=== PATIENT | male | born 2005 | race Caucasian/White ===

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

== ENCOUNTER 2023-08-26 14:30 | Outpatient (RCR) | payer BC, SELFPAY | END 2023-09-10 09:58 | disposition home or self-care (01) | PROVIDERS: Visit Provider Family Medicine | DX: M25.552 Pain in left hip (principal); M25.532 Pain in left wrist; Z51.89 Encounter for other specified aftercare; M62.81 Muscle weakness (generalized) | CPT/HCPCS: 97110; 97140; 97161 ==

== ENCOUNTER 2024-04-29 15:16 | Outpatient (CLI) | payer BC, SELFPAY ==
[2024-04-29 23:25] LABS: Chlamydia DNA Amplified* NOT DETECTED (No Detected); GC DNA Amplified* NOT DETECTED (No Detected)
== END 2024-04-29 15:17 | disposition home or self-care (01) ==
LOC: NFLDUCREF 15:16
PROVIDERS: Visit Provider Nurse Practitioner Family
DX: R30.0 Dysuria (principal)
CPT/HCPCS: 87086; 87491; 87591

== ENCOUNTER 2024-06-05 16:18 | Emergency (ER) | payer BC, SELFPAY ==
--- OUTSIDE RECORDS SUMMARY | 2024-06-05 16:20 | XMS_ITS | Clinical Summary ---
Author Organization [facility] Address [address] [place] [address] Care Team Providers Care Co Founder And Ceo Name Role Phone Staff, Other Clinical Primary Care Provider Unav ailable Allergies No known active allergies Medications methylphenidate 27 mg extended-release tablet Take 27 mg by mouth. 04/06/2024 Active Active Problems No known active problems Encounters Date Type Department Care Team Description 05/10/[address] [phone] Luan Atkinson PA Results 05/05/2024 9:35 AM ELECTRIC DETECTOR OPERATOR Office Visit [address] [phone] Luan Atkinson PA Urinary Problem (discomfort when urinating x 4 wks - had std testing and urinalysis - neg ) 05/05/2024 Travel from Last 3 Months Social History Tobacco Use Types Packs/Day Years Used Date Smoking Tobacco: Never Smokeless Tobacco: Never Tobacco Cessation:Counseling Given: Yes Alcohol Use Standard Drinks/Week Comments Yes 0 (1 standard drink = 0.6 oz pur e alcohol) occasionally Social Connections Answer Date Recorded Do you often feel lonely or isolated from those around you? 0 08/29/2023 Financial Resource Strain Answer Date R ecorded Difficulty of Paying Living Expenses 3 08/29/2023 Difficulty of Paying Living Expenses Not on file 08/29/2023 Food Insecurity Answer Date Recorded Do you worry your food will run out before you are able to buy more? 1 08/29/2023 Transportation Needs Answer Date Record ed Does lack of transportation keep you from medica l appointments? 1 08/29/2023 Does lack of transportation keep you from work, meetings or getting things that you need? 1 08/29/2023 Housing Stability Answer Date Recorded What is your housing situation today? 1 08/29/2023 Utilities Answer Date Recorded Do you have trouble paying f or utilities (for example, heat, electricity, water, phone)? 1 08/29/2023 Sex and Gender Information Value Date Recorded Sex Assigned at Not on file Legal Sex Male 9:51 AM CDT Gender Identity Not on file Sexual Orientation Not on file Obstetrics History Last Filed Vital Signs Vital Sign Reading Time Taken Comments Blood Pressure 120/62 05/05/2024 9:44 AM ELECTRIC DETECTOR OPERATOR Pulse 68 05/05/2024 9:44 AM ELECTRIC DETECTOR OPERATOR Temperature 36.4 C (97.6 F) 05/05/2024 9:44 AM ELECTRIC DETECTOR OPERATOR Respiratory Rate - - Oxygen Saturation 98% 08/29/2023 2:40 PM CDT Inhaled Oxygen Concentration - - Weight 89 kg (196 lb 4.8 oz) 05/05/2024 9:44 AM ELECTRIC DETECTOR OPERATOR Height 185.1 cm (6' 0.87) 08/07/2023 4:12 PM CD T Body Mass Index - - Plan of Treatment Health Maintenance Due Date Last Done Comments Tdap 2014 Depression screening for age 12+ 2015 HPV series for age 9-26 (1 - Male 3-dose series) 2018 Tetanus booster 2023 ([place]) Influenza for age 9-49 11/30/2023 COVID-19 vaccine series ( season) 2023 07/22/2020 BMI (ht and wt on same day) for age 18+ 08/06/2024 08/07/2023 HIV for age 15-65 Completed 05/05/2024 Hepatitis C screening for ag e 18-79 Completed 05/05/2024 Meningococcal series for age 11-21 Aged Out No longer eligible based on patient's age to complete this topic Pneumococcal series for age 6-49 Aged Out No longer eligible based on patient's age to complete this topic Procedures Procedure Name Priority Date/Time Associated Diagnosis Comments MYCOPLASMA GENITALIUM, MARGOT, URINE ([facility]) Routine 05/05/2024 10:58 AM ELECTRIC DETECTOR OPERATOR Dysuria Urethritis TRICHOMONAS AMPLIFIED PROBE Routine 05/05/2024 10:58 AM ELECTRIC DETECTOR OPERATOR Dysuria UA W/ SEDIMENT EXAM REFLEXED PER CRITERIA Routine 05/05/2024 10:58 AM ELECTRIC DETECTOR OPERATOR Dysuria GC CHLAMYDIA TRACH PROBE Routine 05/05/2024 10:58 AM ELECTRIC DETECTOR OPERATOR Dysuria ANTI HCV Routine 05/05/2024 10:45 AM ELECTRIC DETECTOR OPERATOR Dysuria ANTI HIV 1/2 Routine 05/05/2024 10:45 AM ELECTRIC DETECTOR OPERATOR Dysuria TREPONEMA PALLIDUM Routine 05/05/2024 10 :43 AM ELECTRIC DETECTOR OPERATOR Dysuria from Last 3 Months Results * MYCOPLASMA GENITALIUM, MARGOT, [facility] (05/05/2024 10:58 AM ELECTRIC DETECTOR OPERATOR) Pathologist [facility] MYCO GENITALIUM UR MARGOT Negative Negative 05/08/2024 10:08 AM ELECTRIC DETECTOR OPERATOR [facility]) Urine URINE SPECIMEN / Unknown Non-Blood / Unknown 05/05/2024 10:58 AM ELECTRIC DETECTOR OPERATOR 05/05/2024 10:58 AM ELECTRIC DETECTOR OPERATOR Narrative [facility] - 05/08/2024 10:08 AM ELECTRIC DETECTOR OPERATOR Performed at: - [facility] [address] [id number] Linux Server Engineer: Allen Molina MD, Phone: [phone] us Luan GARZON URINE Shanika l Result [facility] ([facility]) [address] [place] [address], * TRICHOMONAS AMPLIFIED PROBE (05/05/2024 10:58 AM ELECTRIC DETECTOR OPERATOR) Pathologist [facility] TRICHOMONAS AMPLIFIED PROBE Negative 05/07/2024 1:31 PM ELECTRIC DETECTOR OPERATOR [facility] Other URINE SPECIMEN / Unknown Non-Blood / Unknown 05/05/2024 10:58 AM ELECTRIC DETECTOR OPERATOR 05/05/2024 10:58 AM ELECTRIC DETECTOR OPERATOR Luan GARZON MICROBIOLOGY Shanika l Result Performing Organization Address [facility]/ZIP Co de Phone Number [facility] [address] [place] [address], [place] * GC CHLAMYDIA [[id number]] - urine (05/05/2024 10:58 AM ELECTRIC DETECTOR OPERATOR) CHLAMYDIA PROBE Negative 12:20 PM ELECTRIC DETECTOR OPERATOR [facility] N GONORRHOEAE PROBE Negative 05/06/2024 12:20 PM ELECTRIC DETECTOR OPERATOR [facility] Other URINE SPECIMEN / Unknown Non-Blood / Unknown 05/05/2024 10:58 AM ELECTRIC DETECTOR OPERATOR 05/05/2024 10:58 AM ELECTRIC DETECTOR OPERATOR Luan GARZON MICROBIOLOGY Shanika l Result Performing Organization Address [facility] de Phone Number [facility] [address] [place] [address], [place] * UA W/ SEDIMENT EXAM REFLEXED PER CRITERIA [15046.2] (05/05/2024 10:58 AM ELECTRIC DETECTOR OPERATOR) COLOR Yellow Yellow Color 05/05/2024 11:33 AM ELECTRIC DETECTOR OPERATOR [facility] CLARITY Clear Clear Clarity 05/05/2024 11:33 AM ELECTRIC DETECTOR OPERATOR [facility] SPECIFIC GRAVITY,URINE 1.025 1.010, 1.015, 1.020, 1.025 05/05/2024 11:33 AM [facility] PH,URINE 6.0 6.0, 7.0, 8.0, 5.5, 6.5, 7.5, 8.5 05/05/2024 11:33 AM [facility] UROBILINOGEN, QUALITATIVE Normal Normal EU/dl 05/05/2024 11:33 AM [facility] PROTEIN, URINE Negative Negative mg/dL 05/05/2024 11:33 AM [facility] GLUCOSE, URINE Negative Negative mg/dL 05/05/2024 11:33 AM [facility] KETONES,URINE Negative Negative mg/dL 05/05/2024 11:33 AM [facility] BILIRUBIN,URI NE Negative Negative 05/05/2024 11:33 AM [facility] OCCULT BLOOD,URINE Negative Negative 05/05/2024 11:33 AM [facility] NITRITE Negative Negative 05/05/2024 11:33 AM [facility] LEUKOCYTE ESTERASE Negative Negative 05/05/2024 11:33 AM [facility] Urine URINE SPECIMEN / Unknown Non-Blood / Unknown 05/05/2024 10:58 AM ELECTRIC DETECTOR OPERATOR 05/05/2024 10:58 AM ELECTRIC DETECTOR OPERATOR Result [facility] Luan Atkinson PA URINE Shanika l Result [facility] [address] [place] [address] * ANTI HCV [68421.2] (05/05/2024 10:45 AM ELECTRIC DETECTOR OPERATOR) HEPATITIS C ANTIBODY NON-REACTI VE NON-REACT ROS [facility] Comment: HCV antibody was non-reactive. There is no laboratory evidence of HCV infection. In most cases, no further action is required. However, if recent HCV exposure is suspected, a test for HCV RNA (test code 24063) is suggested. For additional information please refer to http://education.[employer]/faq/YSN65a5 (This link is being provided for informational/ educational purposes only.) Blood BLOOD SPECIMEN / Unknown 05/05/2024 10:45 AM ELECTRIC DETECTOR OPERATOR 05/05/2024 10:46 AM ELECTRIC DETECTOR OPERATOR Narrative [facility] - 05/06/2024 2:06 PM ELECTRIC DETECTOR OPERATOR FASTING:NO FASTING: NO Result [facility] Luan GARZON SEND OUTS Shanika l Result Performing Organization Address [facility]/State/ZIP Co de Phone Number [facility] [address] [place] [address], [facility] [address] [place] [address] * ANTI HIV 1/2 [35076.0] (05/05/2024 10:45 AM ELECTRIC DETECTOR OPERATOR) HIV AG/AB, 4TH GEN NON-REACT ROS NON-REACT ROS [facility] Comment: HIV-1 antigen and HIV-1/HIV-2 antibodies were not detected. There is no laboratory evidence of HIV infection. PLEASE NOTE: This information has been disclosed to you from records whose confidentiality may be protected by state law. If your state requires such protection, then the state law prohibits you from making any further disclosure of the information without the specific written consent of the person to whom it pertains, or as otherwise permitted by law. A general authorization for the release of medical or other information is NOT sufficient for this purpose. For additional information please refer to http://education.[employer]/faq/TWJ849 (This link is being provided for informational/ educational purposes only.) The performance of this assay has not been clinically validated in patients less than 2 years old. Blood BLOOD SPECIMEN / Unknown 05/05/2024 10:45 AM ELECTRIC DETECTOR OPERATOR 05/05/2024 10:46 AM ELECTRIC DETECTOR OPERATOR Narrative [facility] - 05/06/2024 2:06 PM ELECTRIC DETECTOR OPERATOR FASTING:NO FASTING: NO Luan GARZON SEND OUTS Shanika l Result [facility] [address] [place] [address], [facility] [address] [place] [address] * TREPONEMA PALLIDUM [97242.1] (05/05/2024 10:43 AM ELECTRIC DETECTOR OPERATOR) TREPONEMA PALLIDUM Non-Reacti ve Non-Reacti ve 05/05/2024 11:57 PM ELECTRIC DETECTOR OPERATOR [facility] Blood BLOOD SPECIMEN / Unknown [facility] / Unknown 05/05/2024 10:43 AM ELECTRIC DETECTOR OPERATOR 05/05/2024 10:43 AM ELECTRIC DETECTOR OPERATOR Luan GARZON SEND OUTS Shanika l Result [facility] [address] [place] [address], from Last 3 Months Insurance [employer] [place] [employer] Care Teams Co Founder And Ceo Relationship Specialty Start Date End Date Staff, Other Clinical . PCP - General 11/16/21
--- OUTSIDE RECORDS SUMMARY | 2024-06-05 16:20 | XMS_ITS | Clinical Summary ---
Author Organization [facility] Address [address] [place] [address] Care Team Providers Care Cardiac Tech Name Role Phone Venu Norton MD Primary Care Provider Murtaza Rachel Unavailable Unavailable Allergies No known active allergies Medications methylphenidate ER (Concerta) 54 mg 24 hr tablet Take 54 mg by mouth. 06/23/2020 Active ibuprofen 200 mg tablet Take 400 mg by mouth 1 time as needed for mild pain. Active clindamycin 300 mg capsule Take 2 capsules by mouth three times a day. 22 capsule 07/02/2020 6:24 PM PDT 07/02/2020 Active Lactobacillus rhamnosus GG (Culturelle) 15 billion cell capsule, sprinkle Take 1 capsule by mouth two times a day. 100 capsule 07/02/2020 6:24 PM PDT 07/02/2020 Active Active Problems Problem Noted Date Diagnosed Date Acne vulgaris 07/01/2020 ADD (attention deficit disorder) 07/01/2020 Cellulitis of face 07/01/2020 Phlegmon 07/01/2020 Contusion of left anterior thigh 12/29/2017 Proximal phalanx fracture of finger 02/20/2012 Toe fracture 02/12/2011 Immunizations Immunization Administration Dates Next Due DTAP, 5 PERTUSSIS 03/07/2008, 8,07/11/2004,07/26,2003,2003 HIB Vaccine 07/11/2004, 4,2003,04/20 HPV, 9-Valent 03/05/2016 Hep A, 2 Dose 04/08/2007,09/01/2006 Hep A, Pediatric, Unspecifie d Formulation 04/08/2007,09/01/2006 Hep B, Adolescent or Pediatric 2003 Hep B, Unspecified 2003,2003 Hpv, Quadrivalent 12/20/2014 IPV 04/08/2007, 4,2003,04/20 Influenza Vaccine Nasal 02/08/2013,02/24,03/07/2008,03/07 Influenza, Injectable, Quadrivalent 05/22/2018,1 05/26/2016,03/05/2016 Influenza, Injectable, Quadr ivalent, Preservative Free 02/02/2020,03/25/2017,03/05/2016 Influenza, Quadrivalent, Intranasal 12/20/2014,1 04/25/2013,02/08/2013 Influenza, Seasonal, Inj Vaccine 05/26/2019,11/2007,02/13/2005 Influenza, split virus, trivalent, PF 05/26/2019 ,04/08/2007 MMR Vaccine 03/07/2008,03/07/2008,02/02/2004 Meningococcal MCV4O 02/23/2014 Meningococcal MCV4P 05/26/2019,02/23/2014 Pneumococcal Vaccine 2003,2003 TDAP Vaccine 02/23/2014 Varicella Vaccine Live 03/07/2008,03/07/2008,06/2003 Social History Tobacco Use Types Packs/Day Years Used Date Smoking Tobacco: Never Assessed Financial Resource Strain Answer Date R ecorded Financial Resource Strain Not on file 2022 0 03/10/2023 Food Insecurity Answer Date Recorded Worried About Running Out of Food in the Last Ye ar Not on file 03/10/2023 Ran Out of Food in the Last Year Not on file 03/10/2023 Difficult to Find Nutritious Food in the Last Ye ar Not on file 03/10/2023 0 03/10/2023 Transportation Needs Answer Date Record ed Lack of Transportation (Medical) Not on file 03/10/2023 Lack of Transportation (Non-Medical) Not on file 03/10/2023 0 03/10/2023 Housing Stability Answer Date Recorded Housing Situation Today Not on file 03/10/20 23 Worried About Stable Housing Next Two Months Not on file 03/10/[address] You [address] Not on file 03/10/2023 0 03/10/2023 Sex and Gender Information Value Date Recorded Sex Assigned at Male 10/07/2017 12:33 PM PDT Legal Sex Male 6:08 AM PST Gender Identity Not on file Sexual Orientation Not on file Last Filed Vital Signs Vital Sign Reading Time Taken Comments Blood Pressure 124/88 07/02/2020 2:00 PM PDT Pulse 89 07/02/2020 2:00 PM PDT Temperature 37.4 C (99.3 F) 07/02/2020 2:00 PM PDT Respiratory Rate 18 07/02/2020 2:00 PM PDT Oxygen Saturation 99% 07/02/2020 2:00 PM PDT Inhaled Oxygen Concentration - - Weight 87.9 kg (193 lb 12.6 oz) 021 11:00 PM PDT Height - - Body Mass Index - - Plan of Treatment Health Maintenance Due Date Last Done Comments Meningococcal B Vaccine (1 of 2 - Standard) 2019 COVID-19 Vaccine (1 - 2023- season) 2023 Influenza Vaccine (#1) 2023 , 05/26/2019, 05/26/2019, Additional history exists DTaP/Tdap/Td Vaccines (7 - Td or Tdap) 02/24/2024 02/23/2014, 03/07/2008, 03/07/2008, Additional history exists Pneumococcal Vaccine Aged Out 2003, 04/20/19 04 No longer eligible based on patient's age to complete this topic Hepatitis B Vaccines Completed 2003, 2003, 2003 HIB Vaccines Completed 07/11/2004, 06/30, 2003, Additional history exists Hepatitis A Vaccines Completed 04/08/2007, 04/08/2007, 09/01/2006, Additional history exists Polio Vaccine Completed 04/08/2007, 07/2003, 2003, Additional history exists MMR Vaccines Completed 03/07/2008, 10/2007, 02/02/2004 Varicella Vaccine Completed 03/07/2008, , 02/02/2004 HPV Vaccines Completed 03/05/2016, 12/20/2014 Meningococcal Vaccine Completed 05/26/2019 , 02/23/2014, 02/23/2014 Respiratory Syncytial Virus (RSV) Aged Out No longer eligible based on patient's age to complete this topic Rotavirus Vaccines Aged Out No longer eligible based on patient's age to complete this topic Insurance [facility] Advance Directives * Full Support (Latest Code Status on File) Date Activated Date Inactivated Comments 07/01/2020 11:13 PM 07/02/2020 8:53 PM Care Teams Cardiac Tech Relationship Specialty Start Date End Date Venu Norton MD [address] [place] [address] PCP - General Pediatrics 08/24/17 Murtaza Rachel Rush Seater 07/03/20
--- OUTSIDE RECORDS SUMMARY | 2024-06-05 16:20 | XMS_ITS | Clinical Summary ---
Author Organization [facility] Address [address] [place] [address] Care Team Providers Care Cigarette Making Machine Operator Name Role Phone Venu Norton MD Primary Care Provider [phone] Allergies No known active allergies Medications methylphenidate ER 27 MG ER tablet Take 27 mg by mouth every morning. 08/10/2021 Active Active Problems Problem Noted Date Diagnosed Date Trapezius strain, left, initial encounter 2020 Left elbow pain 01/21/2020 Acute pain of left knee 08/04/2018 Contusion of left anterior thigh 12/29/2017 Family History Medical History Relation Comments No Known Problems Father Hypertension Maternal Grandfather Patient rep orted on 08/04/2018. No Known Problems Maternal Grandmother No Known Problems Mother Cancer Paternal Grandfather Patient rep orted on 08/04/2018. No Known Problems Paternal Grandmother Diabetes No Hx Of Relation Status Comments Father Maternal Grandfather Maternal Grandmother Mother Paternal Grandfather Paternal Grandmother Social History Tobacco Use Types Packs/Day Years Used Date Smoking Tobacco: Never Smokeless Tobacco: Never Alcohol Use Standard Drinks/Week Comments No 0 (1 standard drink = 0.6 oz pur e alcohol) Sex and Gender Information Value Date Recorded Sex Assigned at Not on file Legal Sex Male 6:46 AM PST Gender Identity Not on file Sexual Orientation Not on file Last Filed Vital Signs Vital Sign Reading Time Taken Comments Blood Pressure 139/74 11/10/2021 3:16 PM PDT Pulse 70 11/10/2021 3:16 PM PDT Temperature 37.2 C (98.9 F) 11/10/2021 3:16 PM PDT Respiratory Rate 16 11/10/2021 3:16 PM PDT Oxygen Saturation 99% 11/10/2021 3:16 PM PDT Inhaled Oxygen Concentration - - Weight 87.1 kg (192 lb) 06/30/2020 10:23 AM PDT Height 185.4 cm (6' 1) 06/30/2020 10:23 AM PDT Body Mass Index 25.33 06/30/2020 10:23 AM PDT Plan of Treatment Health Maintenance Due Date Last Done Comments Hepatitis C Screening 2003 [facility]: 3y-15y 04/25/2011 04/25/2010, , 03/07/2008 Depression Screening (PHQ-2) 2015 HIV Screening 2018 [facility]: 16y-21y 2019 04/25/2010, 0 08/14/2009, 03/07/2008 Meningococcal B Vaccine (2 of 2 - Bexsero SCDM 2-dose series) 02/10/2022 08/10/2021 COVID-19 Vaccine ( season) 2023 02/26/2022, 04/25/2021, 08/14/2020, Additional history exists Influenza Vaccine (#1) 2023 , 05/26/2019, 05/22/2018, Additional history exists DTaP, Tdap and Td Vaccines (7 - Td or Tdap) 02/24/2024 02/23/2014, 03/07/2008, 07/11/2004, Additional history exists Pneumococcal Vaccine: Pediatrics (0-5 years) and At-Risk Patients (6-49 years) Aged Out 2003, 2003 No longer eligibl e based on patient's age to complete this topic Hepatitis B Vaccine Completed 2003, 2003, 2003 Hepatitis A Vaccine Completed 04/08/2007, 7 HPV Vaccine Completed 03/05/2016, 12/20/2014 Insurance [facility] Care Teams Cigarette Making Machine Operator Relationship Specialty Start Date End Date Venu Norton MD [address] [address] PCP - General Pediatric Medicine 12/29/17
--- OUTSIDE RECORDS SUMMARY | 2024-06-05 16:20 | XMS_ITS | Clinical Summary ---
Author Organization [facility] Address [address] [place] [address] Care Team Providers Care Rail Track Maintainer Name Role Phone Selected, No Pcp Primary Care Provider Unavailab le Allergies No known active allergies Medications methylphenidate (CONCERTA ER) 27 MG Tab CR 09/11/2019 Active Active Problems No known active problems Social History Tobacco Use Types Packs/Day Years Used Date Smoking Tobacco: Never Smokeless Tobacco: Never Sex and Gender Information Value Date Recorded Sex Assigned at Male 02/24/2024 5:26 PM PST Legal Sex Male 10:25 AM PDT Gender Identity Male 02/24/2024 5:26 PM PST Sexual Orientation Not on file Last Filed Vital Signs Vital Sign Reading Time Taken Comments Blood Pressure 110/56 02/24/2024 5:34 PM PST Pulse 75 02/24/2024 5:34 PM PST Temperature 36.2 C (97.2 F) 02/24/2024 5:34 PM PST Respiratory Rate 18 02/24/2024 5:34 PM PST Oxygen Saturation 98% 02/24/2024 5:34 PM PST Inhaled Oxygen Concentration - - Weight 90.9 kg (200 lb 6.4 oz) 02/24/2024 5:34 P M PST Height 185.4 cm (6' 1) 02/24/2024 5:34 PM PST Body Mass Index 26.44 02/24/2024 5:34 PM PST Plan of Treatment Health Maintenance Due Date Last Done Comments SCRN: FOR DEPRESSION - ANNUAL 2003 SCRN: FOR HIV USPSTF ROUTINE (15-65 YEARS) 2018 [facility] SCRN: HIV-UNIVERSAL SCRN 2018 SCRN: FOR HEPATITIS C ROUTINE (18-79 Years) 2021 IMM: INFLUENZA (AGE > 6 MONTHS) (#1) 11/30/2023 02/26/2022, 02/02/2020, 05/26/2019, Additional history exists IMM: DTAP/TDAP/TD (7 - Td or Tdap) 02/24/2024 02/23/2014, 03/07/2008, 03/07/2008, Additional history exists BMI >=25 AND <30 03/31/2024 IMM: RSV ( patients and Patients AGE > 60 YEARS OLD) (1 - 1-dose 75+ series) 2078 IMM: HEPATITIS B Completed 2003, , 2003 IMM: HEPATITIS A Completed 04/08/2007, 09/01/2006 IMM: HPV Completed 03/05/2016, 12/20/2014 IMM: MENINGOCOCCAL ACWY Completed 05/26/19, 02/23/2014, 02/23/2014 IMM: MENINGOCOCCAL B Completed 03/27/2022, 08/11/19 IMM: Pneumococcal Combined Aged Out N o longer eligible based on patient's age to complete this topic IMM: RSV (AGE < 20 MONTHS) Aged Out N o longer eligible based on patient's age to complete this topic Insurance [facility] Care Teams Rail Track Maintainer Relationship Specialty Start Date End Date Selected, No Pcp PCP - General PCP 10/07/19
--- OUTSIDE RECORDS SUMMARY | 2024-06-05 16:20 | XMS_ITS | Continuity of Care Document ---
Author Organization [facility] Address [address] [facility] [address] [place] [address] Phone Care Team Providers Care Watermelon Inspector Name Role Phone Jassi Loya MD Unavailable Unavailable Allergies, Adverse Reactions, Alerts Substance Reaction Status Criticality No Known allergies Medications Medication Instructions Dosage Effective Dates (start - stop) Status Comments aspirin 81 mg tablet,delayed release take 1 tablet by oral route 2 times every day 81 MG - Active tramadol 50 mg tablet take .5- 1 tablet by oral route every 6 hours as needed for Pain - Active Senna Lax 8.6 mg tablet take 1-2 tablets by oral route every 4-6 hours as needed for constipation as needed - Active oxycodone 5 mg tablet Take 1-2 tablets b y oral route every 4-6 hours as needed for pain as needed for Breakthrough pain - Active ondansetron HCl 4 mg tablet take 1-2 tablets by oral route every 8 hours as needed for nausea as needed - Active Mapap (acetaminophen) 500 mg capsule take 2 capsule by oral route every 8 hours as needed - Active Procedures Procedure Date POSTOP FOLLOW-UP VISIT Hip Arthr0 W/Debridement HIP ARTHROSCOPY/SURGERY HO post-op hip abduction OFFICE/OUTPATIENT VISIT, EST NO CHARGE DRAIN/INJ JOINT/BURSA W/US Drugs unclassified injection Triamcinolone acetonide inj Injection, bupivicaine, not otherwise sp ec. 0.5mg OFFICE/OUTPATIENT VISIT, EST OFFICE/OUTPATIENT VISIT, EST MRI JOINT OF LWR EXTR W/DYE NEEDLE LOCALIZATION BY XRAY Inj gadoterate meglumi 0.1ml OFFICE/OUTPATIENT VISIT, NEW Advance Directives Directive Yes / No Effective Date File Name No Information Encounters Encounter Description Practice Location Reason(s) For Visit Diagnoses Date Provider Providers Copied on Encounter [facility], [address] [place] [address], [place], [place], [id number], tel:[phone] [facility] [address] No Information 5 Shalini Keene. [address] [place] [address] [address], [place], [place], [id number] , [place]. tel: [phone] [facility], [address] [place] [address], [place], [place], [id number], [place] tel:[phone] [facility] [address] Tear of left acetabular labrum, initial encounterChronic left hip pain 4 Shalini Keene. [address] [place] [address], [place], [place], [id number] , [place]. tel: [phone] Referring Provider: Jassi Loya, [address] [place] [address], [place], [address] . tel:[phone] [facility], [address] [place] [address], [place], [place], [id number], [place] tel:[phone] [facility] No Information 4 Bebe Kirkland. [address] [place] [address], [place], [place], [id number] , [place]. tel: [phone] Referring Provider: Jassi Loya, [address] [place] [address], [place], [address] . tel:[phone] [facility], [address] [place] [address], [place], [id number], [place] tel:[phone] [facility] No Information 4 Shalini Keene. [address] [place], [facility] 700, [place], [place], [id number] , [place]. tel: [phone] Referring Provider: Jassi Loya, [address] [place] [address] [address], [place], [address] . tel:[phone] [facility], [address] [facility] 700, [place], [id number], [place] tel:[phone] [facility] [address] No Information 4 Shalini Keene. [address] [place] [address], [facility] 700, [place], [place], [id number] , [place]. tel: [phone] Referring Provider: Jassi Loya, [address] [place] [address] 700, [place], [address] . tel:[phone] OFFICE/OUTPA TIENT VISIT, [facility], [address] [place] [address] 700, [place], [id number], [place] tel:[phone] [facility] [address] Tear of left acetabular labrum, initial encounter 4 Shalini Keene. [address] [place], [facility] 700, [place], [place], [id number] , [place]. tel: [phone] Referring Provider: Jassi Loya, [address] [place] [address] [address], [place], [address] . tel:[phone] [facility], [address] [place] [address] 700, [place], [id number], [place] tel:[phone] [facility] [address] Chronic left hip painTear of left acetabular labrum, initial encounter 4 Shalini Bajwa. [address] [place] [address], [facility] 700, [place], [place], [id number] , [place]. tel: [phone] Referring Provider: Aydee Loya, [address] [place] [address] [address], [place], [address] . tel:[phone] OFFICE/OUTPA TIENT VISIT, EST [facility], [address] [place] [address] 700, [place], [id number], [place] tel:[phone] [facility] [address] Tear of left acetabular labrum, initial encounter 4 Shalini Keene. [address] [place] [address], [facility] 700, [place], [id number] , [place]. tel: [phone] Referring Provider: Jassi Loya, [address] [place] [address] [address], [place], [address] . tel:[phone] OFFICE/OUTPA TIENT VISIT, [facility], [address] [place] [address] 700, [place], [id number], [place] tel:[phone] [facility] [address] Tear of left acetabular labrum, initial encounter 4 Shalini Keene. [address] [place] [address] 700, [place], [place], [id number] , [place]. tel: [phone] Referring Provider: Jassi Loya, [address] [place] [address] 700, [place], [address] . tel:[phone] [facility], [address] [place] [address] 700, [place], [id number], [place] tel:[phone] [facility] No Information 4 Shalini Keene. [address] [place] [address], [facility] 700, [place], [place], [id number] , [place]. tel: [phone] Referring Provider: Jassi Loya, [address] [place] [address], [place], [address] . tel:[phone] OFFICE/OUTPA TIENT VISIT, [facility], [address] [place] [address] 700, [place], [id number], [place] tel:[phone] [facility] [address] Tear of left acetabular labrum, initial encounter 4 Shalini Keene. [address] [place] [address] 700, [place], [id number] , [place]. tel: [phone] Referring Provider: Jassi Loya, [address] [place] [address], [place], [address] . tel:[phone] Family History Family Member Type Diagnosis Age At Onset No Information Payers Payer name Insurance type Covered democrat ID Authoriza job(s) [facility] [id number] Social History Type Description Quantity Date Captured Comments Sex Male Smoking Status No Information Chief Complaint And Reason For Visit No Information Reason For Referral Reason For Referral No Information Plan Of Treatment Date Type Action Status Future Order: Radiology Order NE EDLE LOCALIZATION BY XRAY, Left ([id number]), Sent on: Sent Future Order: Radiology Order MR I ARTHROGRAM LWR EXTR W/DYE, Left ([id number]), Sent on: Sent History Of Present Illness Encounter Date Complaint History Of Prese nt Illness No Information Functional Status Date Functional Assessmen t No Information Instructions Date Instruction Additional Infor mation No Information Assessments Type Assessment Date No Information Patient Care Teams Name Effective Dates (start - stop) Status Members No Information
--- OUTSIDE RECORDS SUMMARY | 2024-06-05 16:20 | XMS_ITS | Continuity of Care Document ---
Author Organization [place] [facility] Address [address] [place] [address] Assessment No assessment recorded. Plan of Treatment Reminders Order Date Submit Date Provider Last Modified By Organization Details Last Modified Time Details Appointments None recorded. Lab urinalysis, dipstick 2024 025 [facility], [address], [place], [address], 5 16:34:37 urinary tract pathogens panel, MARGOT+probe, urine - add on labs: Chlamydia Trachomatis , Cytomegalov irus, Herpes Simplex Virus (HSV) types 1/2, EVELYN Virus, BK Virus, MRSA Phenotypes, Mycobacteri um Tuberculosi s, Nesseria Gonorrhea, Trichomonas Vaginalis [email or web address] [facility] [address] [facility], [address], [place], [address], 5 08:27:33 Referral None recorded. Procedures None recorded. Surgeries None recorded. Imaging None recorded. Medication Orders None recorded. Patient TargetsNo targets recorded. Patient Instructions Encounter Date Encounter Id Patient Instructions Last Modified By Organization Details Last Modified Time 05/20/2024 [id number] Addison presents for dysuria - UA: normal - PVR: 28cc Ordered guidance, will contact w results Has had several courses of abx with only minimal improvement Increase water Epsom salt soaks Avoid caffeine and alcohol Pyridium as needed (will turn urine orange, watch for staining) tadalafil 5mg/day if severe symptoms [email or web address] Not available 05/20/2024 16:51:30 Reason for Referral None Reported. Problems Name Problem SNOMED Code Status Onset Date Resolution Date Notes Provider Name and Address Organization Details Recorded Time Dysuria 06184788 Active 025 Emily courtney [facility] 5 14:54:55 Increased frequency of urination 409671731 Active 025 [facility], [address], [place], [address], [facility] 5 11:13:32 Urethritis 97521078 Active 025 LEIDY VENUS, [address], [place], [address], [facility] 5 15:43:39 Problem Notes None recorded. Procedures Surgical History Date Name Laterality Status Provider Name and Address Organization Details Recorded Time 5 Past Data Reviewed completed LEIDY VENUS [address], [place], [address], [facility] 05/20/2024 16:32:19 5 Bladder Scan completed Emily Hyde [facility] 05/20/2024 16:29:47 Imaging Results None recorded. Procedure Notes None recorded. Medical Equipment None Reported. Allergies No known drug allergies Medications Name Sig Start Date Stop Date Status Note LastModified by Organization Details LastModified Time ondansetron HCl 4 mg tablet take 1 TO 2 tablet by mouth every 8 hours if needed for nausea 05/20 completed Not Available Not Available Not Available moxifloxaci n 400 mg tablet TAKE 1 TABLET BY MOUTH DAILY 05/20 completed Not Available Not Available Not Available metronidazo le 500 mg tablet TAKE 4 TABLETS BY MOUTH 1 TIME 05/20 completed Not Available Not Available Not Available sulfamethox azole 800 mg-trimetho prim 160 mg tablet TAKE 1 TABLET BY MOUTH TWICE DAILY FOR 7 DAYS 05/20 completed Not Available Not Available Not Available aspirin 81 mg tablet,oli yed release take 1 tablet by mouth twice a day 05/20 completed Not Available Not Available Not Available tramadol 50 mg tablet TAKE 1/2 TO 2 TABLET BY MOUTH EVERY 6 HOURS NEEDED FOR PAIN FOR PAIN 4-7 ON THE PAIN SCALE 05/20 completed Not Available Not Available Not Available oxycodone 5 mg tablet take 1 TO 2 tablet by mouth every 4 to 6 hours if needed for [facility]... (REFER TO PRESCRIPT ION NOTES). 05/20 completed Not Available Not Available Not Available methylpheni date ER 27 mg tablet,exte nded release 24 hr Take 1 tablet every day by oral route. active Not Available Not Available No t Available tadalafil 5 mg tablet Take 1 tablet every day by oral route. 2024 active Not Available Not Available Not Avai lable Vitals Date Recorded Body weight Body height Body mass index (BMI) Provider Name and Address Organization Details Last Updated DateTime 05/20/2024 08994.12677 55362 g 185.42 cm 25.3 kg/m2 Not Available Health Note 05/20/2024 16:20:24 Social History Question Answer Notes LastModified by Organizat ion Details LastModified Time Tobacco Smoking Status Never Smoker Not Available Health Note 05/19/2024 21:35:32 Do You Have An Advance Directive? Yes [email or web address] Information not available 05/19/2024 What Is Your Level Of Alcohol Consumption? Occasional [email or web address] Information not available 05/19/2024 What Is Your Level Of Caffeine Consumption? None [email or web address] Information not available 05/19/2024 How Much Tobacco Do You Chew? None [email or web address] Information not available 05/19/2024 Do You Or Have You Ever Used E-cigarettes Or Vape? Never Used Electronic Cigarettes [email or web address] Information not available 05/19/2024 Do You Have A Medical Power Of Reports Analyst? Yes [email or web address] Information not available 05/19/2024 What Was The Date Of Your Most Recent Tobacco Screening? 05/20/2024 [email or web address] Information not available 05/19/2024 What Is Your Relationship Status? Single [email or web address] Information not available 05/19/2024 Are You Sexually Active? No [email or web address] Information not available 05/19/2024 Do You Or Have You Ever Used Smokeless Tobacco? Never Used Smokeless Tobacco [email or web address] Information not available 05/19/2024 Do You Use Any Illicit Or Recreational Drugs? No [email or web address] Information not available 05/19/2024 Has Tobacco Cessation Counseling Been Provided? Yes [email or web address] Information not available 05/19/2024 On What Date Was Tobacco Cessation Counseling Provided? 05/20/2024 [email or web address] Information not available 05/20/2024 Do You Or Have You Ever Used Any Other Forms Of Tobacco Or Nicotine? No Information not available 05/19/2024 How Many Days In The Past Year Have You Consumed 5 Or More Drinks? 20 [email or web address] Information no t available 05/19/2024 Sex: Unknown Functional Status None recorded. Mental Status None recorded. Family History Relationship Description Onset Age of this Age Resolved Age Notes LastModified by Organization Details LastModified Time Father No current problems or disability [email or web address] Not available 05/19 21:35:31 Mother No current problems or disability [email or web address] Not available 05/19 21:35:31 Medical History Condition Response Sexually Transmitted Infection N Diabetes N Bleeding Disorder N High Blood Pressure N Kidney Stones N Cancer N Lung Disease N Depression N High Cholesterol N GERD/Acid Reflux N Heart Disease N Immunizations Vaccine Type Date Status Note Provider Nam e and Address Organization Details Recorded Time influenza, unspecified formulation 2 completed Not Available Health Note 05/19/2024 21:35:34 SARS-COV-2 (COVID-19) vaccine, UNSPECIFIED 2 completed Not Available Health Note 05/19/2024 21:35:34 Pneumococcal conjugate PCV 13 2 completed Not Available Health Note 05/19/2024 21:35:34 pneumococcal polysaccharide PPV23 2 completed Not Available Health Note 05/19/2024 21:35:34 zoster live 2 completed Not Available Health Note 05/19/2024 21:35:34 Past Encounters Encounter ID Performer Location Encounter Start Date Encounter Closed Date Diagnosis/Indication Diagnosis SNOMED-CT Code Diagnosis ICD10 Code Diagnosis Note [id number] SHAYNA BLEDSOE [facility] [address],[facility] [address] [place] [address] 05/20/2024 16:18:47 05/20/2024 16:55:12 Dysuria 55912615 R30.0 Increased frequency of urination 953500111 R35.0 Health Concerns Section Related Observation LastModified by Organization Detai ls LastModified Time None Recorded Concern Status LastModified by Organization Details LastModified Time None Recorded Payers Encounter Date Sequence Insurance Name Policy Number Policy Snowden Covered Member ID Snowden Member ID Guarantor Name 05/20/2024 1 [place] [facility] [employer]IELD (PPO) [id number] Kevin Chairez [id number] Addison Lozano Mihaela Notes Date Note Type Note Provider Name and Address Organization Details Recorded Time text/html Addison presents for dysuria 05/20/24C/o: dysuria at meatus - sometimes painful when voiding, sometimes slight increase in freq.Notes girlfriend had a UTI at the timeMore concerned about something being wrong rather than the severity of the pain.denies: hematuriahas tried doxycyline, metronidazole, moxifloxacin, ceftriaxone. slight improvement with the abx.had labral issue imagingprior procedures: 0Baseline voiding: DF 1-3 hours, nocturia 0-1x, stream strong. no urgency or leakageWater: 24oz x4-5 bottlesCaffeine: usually noneBMs: regularFHx malignancy: 0 Chief complaint:Recurrent UTI Recurrent UTIs:Diagnosed:1 Months agoHistory of:0 UTI's in the pastPrior treatment:3 courses of antibioticsAssociated symptoms:Pain with urination, Pain at the top of the penisBetter with:Increased fluid intakeSeverity:mildInterfe rence with life:SomeProgression:about the same overall SHAYNA BLEDSOE [address] [facility],[address], [place], [address], [facility] 05/20/2024 16:51:44
--- OUTSIDE RECORDS SUMMARY | 2024-06-05 16:20 | XMS_ITS | Clinical Summary ---
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 Name Role Phone Unavailable Primary Care Provider Unavailabl e Source Comments NOTE: The information displayed by Care Everywhere is extracted from the complete medical record and may not identify all current or past patient conditions.[facility] Allergies No known active allergies Medications No known medications Active Problems Problem Noted Date Diagnosed Date Proximal phalanx fracture of finger 02/20/2012 Toe fracture 02/12/2011 Immunizations Immunization Administration Dates Next Due *INTRANASAL LIVE* FluMIST (2 -49 yrs) QUAD 12/20/2014,02/23/2014,02/08/2013 *INTRANASAL LIVE* FluMIST (2 -49 yrs) TRI 02/25/2012 *VIAL* FluZONE/FluLAVAL (3+ yrs) QUAD 03/05/2016 DTaP (Diphtheria, Tetanus, a cellular Pertussis) 03/07/2008,07/11/2004,07/11/2004,07/26,2003,2003,2003 ,2003,2003 HPV, 9-Valent (GARDASIL 9, H uman Papillomavirus) 03/05/2016 HPV, Quadrivalent (GARDASIL 4) 12/20/2014 HepA (Hepatitis A) 04/08/2007,09/01/2006 HepB (Hepatitis B) 2003,2003, 003 Hib (ACTHIB/HIBERIX,PRP-T) 07/11/2004,,2003,04/20 IPV (Polio) 04/08/2007, 4,2003,04/20 Influenza 02/13/2005 Influenza (.50 PF) 04/08/2007 Influenza (Flumist) 03/07/2008 MMR (Measles, Mumps, Rubella) 03/07/2008, 004 Meningococcal Conjugate Vacc ine (MENVEO) 02/23/2014 PCV7 (Pneumococcal Conjugate Vaccine 7 valent) 2003,2003 Tdap (Tetanus, Diphtheria, a cellular Pertussis) 02/23/2014 Varicella 03/07/2008,02/02/2004 Social History Tobacco Use Types Packs/Day Years Used Date Smoking Tobacco: Never Smokeless Tobacco: Never Alcohol Use Standard Drinks/Week Comments Not Asked 0 (1 standard drink = 0.6 oz pur e alcohol) Sex and Gender Information Value Date Recorded Sex Assigned at Not on file Legal Sex Male 2:06 PM PST Gender Identity Not on file Sexual Orientation Not on file Last Filed Vital Signs Vital Sign Reading Time Taken Comments Blood Pressure 102/54 01/04/2013 12:23 PM PDT Pulse 99 05/11/2017 12:48 PM PST Temperature 37.1 C (98.8 F) 05/11/2017 12:48 PM PST Respiratory Rate 18 05/11/2017 12:48 PM PST Oxygen Saturation 100% 05/11/2017 12:48 PM PST Inhaled Oxygen Concentration - - Weight 42.2 kg (93 lb) 10/08/2013 10:28 AM PDT Height 149.7 cm (4' 10.92) 10/08/2013 10:28 AM PDT Body Mass Index 18.83 10/08/2013 10:28 AM PDT Plan of Treatment Health Maintenance Due Date Last Done Comments Adult HIV Screen (1-time) 2018 Hep C Screening (1-time) 2021 FLU VACCINE (#1) 11/30/2023 03/05/2016, , 02/23/2014, Additional history exists Vaccine: COVID-19 ( season) 2023 Vaccine: WBiV-Ooei-Gb (7 - T d or Tdap) 02/24/2024 02/23/2014, 03/07/2008, 07/11/2004, Additional history exists Vaccine: HPV Completed 03/05/2016, 12/20/2014 Insurance [facility] Advance Directives For more information, please contact: [phone] Documents on File Type Date Recorded Patient Bellows Tester Expl anation Advance Directive and Living Will Durable Power of Wet Pour Supervisor 01/04/2013 11:56 AM Advance Directive and Living Will 01/04/2013 11:56 AM
--- OUTSIDE RECORDS SUMMARY | 2024-06-05 16:20 | XMS_ITS | Data Portability ---
Author Organization [facility] Address [address] [place] [address] Assessment No assessment recorded. Plan of Treatment Reminders Order Date Submit Date Provider Last Modified By Organization Details Last Modified Time Details Appointments None recorded. Lab urinalysis, dipstick 2024 025 [facility], [address], [place], [address], 5 16:34:37 urinary tract pathogens panel, MARGOT+probe, urine - add on labs: Chlamydia Trachomatis , Cytomegalov irus, Herpes Simplex Virus (HSV) types 1/2, EVELYN Virus, BK Virus, MRSA Phenotypes, Mycobacteri um Tuberculosi s, Nesseria Gonorrhea, Trichomonas Vaginalis [id number] [place] [address] [facility], [address], [place], [address], 5 08:27:33 Referral None recorded. Procedures None recorded. Surgeries None recorded. Imaging None recorded. Medication Orders None recorded. Patient TargetsNo targets recorded. Patient Instructions Encounter Date Encounter Id Patient Instructions Last Modified By Organization Details Last Modified Time 05/20/2024 [id number] Addison presents for dysuria - UA: normal - PVR: 28cc Ordered guidance, will contact w results Has had several courses of abx with only minimal improvement Increase water Epsom salt soaks Avoid caffeine and alcohol Pyridium as needed (will turn urine orange, watch for staining) tadalafil 5mg/day if severe symptoms [email or web address] Not available 05/20/2024 16:51:30 Reason for Referral None Reported. Results Created Date Observation Date Name Description Value Unit Range Abnormal Flag Note LastModifiedBy Organization Detail LastModifiedTime 05/20/19 25 05/20/2024 UA WITHO UT MICRO PLYMO UTH color-status YELLOW yellow Not Available [facility] [address] [facility] [address], [place], [address], 05/20/2024 16:34:37 05/20/19 25 05/20/2024 UA WITHO UT MICRO PLYMO UTH clarity-stat us CLEAR clear Not Available [facility] [address] [facility] [address], [place], [address], 05/20/2024 16:34:37 05/20/19 25 05/20/2024 UA WITHO UT MICRO PLYMO UTH glucose-stat us NEGATI VE mg/dL negati ve Not Available [facility] [address] [place] [address] [address], [place], [address], 05/20/2024 16:34:37 05/20/19 25 05/20/2024 UA WITHO UT MICRO PLYMO UTH bilirubin-ur ine NEGATI VE negati ve Not Available [facility] [address] [place] [address] [address], [place], [address], 05/20/2024 16:34:37 05/20/19 25 05/20/2024 UA WITHO UT MICRO PLYMO UTH ketones-stat us NEGATI VE mg/dL negati ve Not Available [facility] [address] [place] [address] [address], [place], [address], 05/20/2024 16:34:37 05/20/19 25 05/20/2024 UA WITHO UT MICRO PLYMO UTH SG-status 1.020 1.00-1 .03 Not Available [facility] [address] [place] [address] [address], [place], [address], 05/20/2024 16:34:37 05/20/19 25 05/20/2024 UA WITHO UT MICRO PLYMO UTH pH-status 7.0 5.00-8 .00 Not Available [facility] [address] [place] [address] [address], [place], [address], 05/20/2024 16:34:37 05/20/19 25 05/20/2024 UA WITHO UT MICRO PLYMO UTH protein-stat us NEGATI VE mg/dL negati ve Not Available [facility] [address] [place] [address] [address], [place], [address], 05/20/2024 16:34:37 05/20/19 25 05/20/2024 UA WITHO UT MICRO PLYMO UTH urobilinogen -status 0.2 E.U./D L E.U./ dL 0.2 E.U./d L Not Available [facility] [address] [place] [address] [address], [place], [address], 05/20/2024 16:34:37 05/20/19 25 05/20/2024 UA WITHO UT MICRO PLYMO UTH nitrites-sta tus NEGATI VE negati ve Not Available [facility] [address] [place] [address] [address], [place], [address], 05/20/2024 16:34:37 05/20/19 25 05/20/2024 UA WITHO UT MICRO PLYMO UTH blood-urine NEGATI VE negati ve Not Available [facility] [address] [place] [address] [address], [place], [address], 05/20/2024 16:34:37 05/20/19 25 05/20/2024 UA WITHO UT MICRO PLYMO UTH leuko-status NEGATI VE negati ve Not Available [facility] [address] [place] [address] [address], [place], [address], 05/20/2024 16:34:37 05/20/19 25 05/20/2024 UA WITHO UT MICRO PLYMO UTH specimen type VOIDED Not Available [facility] [address] [place] [address] [address], [place], [address], 05/20/2024 16:34:37 05/20/19 25 05/20/2024 UA WITHO UT MICRO PLYMO UTH performed by GERTRUDIS Roman Not Available [facility] [address] [facility] [address], [place], [address], 05/20/2024 16:34:37 05/20/19 25 05/20/2024 UA WITHO UT MICRO PLYMO UTH total urine volume (mL) 20CC /mL ----- ----- ----- ----- ----- ----- ----- ----- ----- ----- ----- ----- ----- ----- ---- *Paramjit leija note the follo wing minim um quant ities for addit ional urine testi ng: - Atypi cals: 3 mL - Cytol ogy: 20 mL - GC/CH : 2 mL - FISH: 30 mL - Atypi cals w/ GC/CH : 5 mL - Cytol ogy PLUS FISH: 50 mL - Urine Cultu re: 3 mL ----- ----- ----- ----- ----- ----- ----- ----- ----- ----- ----- ----- ----- ----- ---- This lab resul t is being provi ded to you and your provi jake at the same time in compl iance with the 21st Centu ry Cures Act. Your provi jake may not have had time to revie w and make recom menda tions based on the resul t. Nina zimmerman allow up to one week for provi jake revie w. Not Available [facility] [address] [facility] [address], [place], [address], 05/20/2024 16:34:37 05/20/19 05/20/2024 GX - RECUR RENT PERSI STENT COMPL ICATE D UTI test result: SEE NOTES Juan nce 7.0, Clean Catch Urine , UTI Surgi michael, Test Resul t: PATHO GENIC DNA NOT DETEC JOSE LUIS#* F Not Available [facility] [address] [place], [address], 05/23/2024 08:57:38 05/20/1905/20/2024 GX - OTHER UROPA THOGE NS test result: SEE NOTES Juan nce 7.0, Clean Catch Urine , UTI Surgi michael, Test Resul t: PATHO GENIC DNA NOT DETEC JOSE LUIS#* F Not Available [facility] [address] [place], [address], 05/23/2024 08:57:45 Result Notes None recorded. Problems Name Problem SNOMED Code Status Onset Date Resolution Date Notes Provider Name and Address Organization Details Recorded Time Dysuria 12847755 Active [address] [facility] 5 14:54:55 Increased frequency of urination 984991033 Active 025 LEIDY DONOVAN PAC [address] [place] [address],[facility] [address] [place] [address], [phone], [facility] 5 11:13:32 Urethritis 60572667 Active 025 LEIDY DONOVAN PAC [address] [place] [address],[address] [place] [address], [phone], [facility] 5 15:43:39 Problem Notes None recorded. Procedures Surgical History Date Name Laterality Status Provider Name and Address Organization Details Recorded Time 5 Past Data Reviewed completed SHAYNA BLEDSOE [address] [place] [address],[address] [place] [address], [phone], [facility] 05/20/2024 16:32:19 5 Bladder Scan completed Emily Hyde [facility] 05/20/2024 16:29:47 Imaging Results None recorded. Procedure [...] 4 to 6 hours if needed for Christy... (REFER TO PRESCRIPT ION NOTES). 05/20 completed [...] Address Organization Details Last Updated DateTime 05/20/2024 14268.00426 83021 g 185.42 cm 25.3 kg/m2 Not Available Health Note 05/20/2024 16:20:24 Social History Question Answer Notes LastModified by OrganViddseeat ion Details LastModified Time Tobacco Smoking Status [...] Do You Have A Medical Power Of Office Messenger Helper? Yes [email or web address] Information not available 05/19/2024 What [...] Has Tobacco Cessation Counseling Been Provided? Yes Information not available 05/19/2024 On What Date Was Tobacco Cessation Counseling Provided? 05/20/2024 [email or web address] Information not available 05/20/2024 Do You Or [...] Time Father No current problems or disability [email or web address] Not available 05/19 21:35:31 Mother No current problems or disability [email or web address] Not available 05/19 21:35:31 Medical History Condition Response High Blood Pressure N Kidney Stones N Depression N Lung Disease N GERD/Acid Reflux N Sexually Transmitted Infection N Diabetes N Bleeding Disorder N Cancer N High Cholesterol N Heart Disease N Immunizations Vaccine Type [...] SNOMED-CT Code Diagnosis ICD10 Code Diagnosis Note [id number] LEIDY DONOVAN, PAC [facility] [address] [place] [address] 05/20/2024 16:18:47 05/20/2024 16:55:12 Dysuria 05738745 R30.0 Increased frequency of urination 866379127 R35.0 Health Concerns Section Related Observation LastModified by Organization Detai ls LastModified Time None Recorded Concern Status LastModified by Organization Details LastModified Time None Recorded Advance Directives Directive Y: Payers Encounter Date Sequence Insurance Name Policy Number Policy Snowden Covered Member ID Snowden Member ID Guarantor Name 05/20/2024 1 [place] [facility] [id number] Kevin Chairez [id number] Addison Chairez Notes Date Note Type Note Provider Name and Address Organization Details Recorded Time 5 text/html Addison presents for dysuria 05/20/24C/o: dysuria [...] with life:SomeProgression:about the same overall SHAYNA BLEDSOE [address] [place] [address],[address], [place], [address], [facility] 05/20/2024 16:51:44
--- OUTSIDE RECORDS SUMMARY | 2024-06-05 16:21 | XMS_ITS | Encounter Summary ---
Author Organization [facility] Address [address] [place] [address] Care Team Providers Care Websphere Consultant Name Role Phone Venu Norton MD Primary Care Provider +1- [phone] Encounter Details Date Type Department Care Team (Late st Contact Info) Description 03/31/2004 [facility] VIS[facility] Ursula Hoffman MD [address] [place] [address] [phone] - [place] [address] Social History Tobacco Use Types Packs/Day Years Used Date Smoking Tobacco: Never Assessed Sex and Gender Information Value Date Recorded Sex Assigned at Not on file Legal Sex Male 6:46 AM PST Gender Identity Not on file Sexual Orientation Not on file documented as of this encounter Plan of Treatment Not on file documented as of this encounter Visit Diagnoses Not on filedocumented in this encounter Care Teams Websphere Consultant Relationship Specialty Start Date End Date Venu Norton MD [facility] [address], [place] [address] PCP - General Pediatric Medicine 12/29/17 documented as of this encounter
--- OUTSIDE RECORDS SUMMARY | 2024-06-05 16:21 | XMS_ITS | Encounter Summary ---
Author Organization [facility] Address [address] [place] [address] Care Team Providers Care Engine Head Repairer Name Role Phone Venu Norton MD Primary Care Provider +1- [phone] Encounter Details Date Type Department Care Team (Late st Contact Info) Description 01/30/2004 [facility] VISIT [facility] Jamie Pruitt MD Address Alert - Do Not Mail Dept. Of Pediatrics [address] [place], [place] DERMATITIS NOS Social History Tobacco Use Types Packs/Day Years Used Date Smoking Tobacco: Never Assessed Sex and Gender Information Value Date Recorded Sex Assigned at Not on file Legal Sex Male 6:46 AM PST Gender Identity Not on file Sexual Orientation Not on file documented as of this encounter Plan of Treatment Not on file documented as of this encounter Visit Diagnoses Diagnosis Contact dermatitis and other eczema, due to unspecified cause documented in this encounter Care Teams Engine Head Repairer Relationship Specialty Start Date End Date Venu Norton MD [facility] [address] [place] [address] PCP - General Pediatric Medicine 12/29/17 documented as of this encounter
--- OUTSIDE RECORDS SUMMARY | 2024-06-05 16:21 | XMS_ITS | Encounter Summary ---
Author Organization [facility] Address [address] [place] [address] Care Team Providers Care Licensing Coordinator Name Role Phone Venu Norton MD Primary Care Provider +1- [phone] Encounter Details Date Type Department Care Team (Late st Contact Info) Description 05/19/2004 [facility]IS[facility] Columba Gregory MD Address Alert - Do Not Mail ENTERITIS PRESUM INF Social History Tobacco Use Types Packs/Day Years Used Date Smoking Tobacco: Never Assessed Sex and Gender Information Value Date Recorded Sex Assigned at Not on file Legal Sex Male 6:46 AM PST Gender Identity Not on file Sexual Orientation Not on file documented as of this encounter Plan of Treatment Not on file documented as of this encounter Visit Diagnoses Diagnosis ENTERITIS PRESUM INF Colitis, enteritis, and gastroenteritis of presumed infectious origin documented in this encounter Care Teams Licensing Coordinator Relationship Specialty Start Date End Date Venu Norton MD [facility] [address] [address] PCP - General Pediatric Medicine 12/29/17 documented as of this encounter
--- OUTSIDE RECORDS SUMMARY | 2024-06-05 16:21 | XMS_ITS | Encounter Summary ---
Author Organization [facility] Address [address] [place] [address] Care Team Providers Care Binding Cutter Name Role Phone Venu Norton MD Primary Care Provider Murtaza Rachel Unavailable Unavailable Encounter Details Date Type Department Care Team (Late st Contact Info) Description 07/01/2020 Intake Admitting [address] [address] Social History Tobacco Use Types Packs/Day Years Used Date Smoking Tobacco: Never Assessed Sex and Gender Information Value Date Recorded Sex Assigned at Male 10/07/2017 12:33 PM PDT Legal Sex Male 6:08 AM PST Gender Identity Not on file Sexual Orientation Not on file COVID-19 Exposure Response Date Recorded In the last month, have you been in contact with someone who was confirmed or suspected to have Coronavirus / COVID-19? No / Unsure 07/01/2020 5:26 PM PDT documented as of this encounter Plan of Treatment Not on file documented as of this encounter Visit Diagnoses Not on filedocumented in this encounter Care Teams Binding Cutter Relationship Specialty Start Date End Date Venu Norton MD [address] [place] [address] PCP - General Pediatrics 08/24/17 Murtaza Rachel Nurse Gynecology 07/03/20 documented as of this encounter
--- OUTSIDE RECORDS SUMMARY | 2024-06-05 16:21 | XMS_ITS | Encounter Summary ---
Author Organization [facility] Address [address] [place] [address] Care Team Providers Care Industrial Engineering Intern Name Role Phone Venu Norton MD Primary Care Provider +1- [phone] Encounter Details Date Type Department Care Team (Late st Contact Info) Description 05/01/2004 [facility] V[facility] Jamie Pruitt MD Address Alert - Do Not Mail Dept. Of Pediatrics [address] [place], [place] FEVER Social History Tobacco Use Types Packs/Day Years Used Date Smoking Tobacco: Never Assessed Sex and Gender Information Value Date Recorded Sex Assigned at Not on file Legal Sex Male 6:46 AM PST Gender Identity Not on file Sexual Orientation Not on file documented as of this encounter Plan of Treatment Not on file documented as of this encounter Visit Diagnoses Diagnosis Fever and other physiologic disturbances of temperature regulation documented in this encounter Care Teams Industrial Engineering Intern Relationship Specialty Start Date End Date Venu Norton MD [facility] [address] [place] [address] PCP - General Pediatric Medicine 12/29/17 documented as of this encounter
--- OUTSIDE RECORDS SUMMARY | 2024-06-05 16:21 | XMS_ITS | Encounter Summary ---
Author Organization [facility] Address [address] [place] [address] Care Team Providers Care Snuff Container Inspector Name Role Phone Venu Norotn MD Primary Care Provider +1- [phone] Encounter Details Date Type Department Care Team (Late st Contact Info) Description 08/29/2004 [facility] VISIT [facility] Avery Agustin MD [address] [address] Social History Tobacco Use Types Packs/Day Years [...] on filedocumented in this encounter Care Teams Snuff Container Inspector Relationship Specialty Start Date End Date Venu Norton MD [facility] [address] [address] PCP - General Pediatric Medicine 12/29/17 documented as of this encounter
--- OUTSIDE RECORDS SUMMARY | 2024-06-05 16:21 | XMS_ITS | Encounter Summary ---
Author Organization [facility] Address [address] [place] [address] Care Team Providers Care Piledriver Carpenter Name Role Phone Venu Norton MD Primary Care Provider +1- [phone] Encounter Details Date Type Department Care Team (Late st Contact Info) Description 05/21/2004 [facility] VISIT [facility] FLU W RESP MANIFEST NEC Social History Tobacco Use Types Packs/Day Years Used Date Smoking Tobacco: Never Assessed Sex and Gender Information Value Date Recorded Sex Assigned at Not on file Legal Sex Male 6:46 AM PST Gender Identity Not on file Sexual Orientation Not on file documented as of this encounter Plan of Treatment Not on file documented as of this encounter Visit Diagnoses Diagnosis Influenza with other respiratory manifestations documented in this encounter Care Teams Piledriver Carpenter Relationship Specialty Start Date End Date Venu Norton MD [facility] [address] [address] PCP - General Pediatric Medicine 12/29/17 documented as of this encounter
[2024-06-05 16:25] VITALS: BP 145/67; PULSE 67; RESP 18; TEMP 36.6; O2SAT 99; BMI 25.9
[2024-06-05 17:06] LABS: Bilirubin Urine Negative (Negative); Blood Urine Negative (Negative); Glucose Urine Negative (Negative); Ketones Urine Negative (Negative); Leukocyte Esterase Urine Negative (Negative); Nitrite Urine Negative (Negative); Protein Urine Negative (Negative); Urobilinogen Urine 0.2 (0.2-1.0)
[2024-06-05 17:09] LABS: Appearance Urine Clear (Clear); Color Urine Yellow (Yellow)
[2024-06-05 17:21] LABS: Amorphous Sediment Urine Many; RBC Urine 0-2 (0-2); Squamous Epithelial Cell Urine Few (None-Few); WBC Urine 0-2 (0-5)
--- NOTE | 2024-06-05 18:09 | ED.GENADULT ---
HPI - General Adult General Chief complaint: Abdominal Pain Stated complaint: Suspected kidney infection Time Seen by Provider: 06/05/24 17:17 History of Present Illness HPI narrative: Patient reports several months of burning with urination. Has been tested numerous times for UTI and SDI's which have been negative. He now developed right sided back pain and nausea and believes he may have a kidney infection. 19-year-old man presenting to the emergency department with concern of dysuria that has been present for over a month. Has been tested a number of times for urinary tract infection as well as STIs. All tests have been negative. Has had little right-sided back pain as well as nausea now. Concern of potential infection. Has also seen Urology in the interim. Denies that any genitourinary exam has actually been done to date. No imaging either. Does report that had negative blood draw/tests [facility] Urgent care records I can review from April 29 have a good summation. Was started at that time on Bactrim with positive nitrate in urine. Apparently with negative culture results was advised to discontinue the Bactrim in a couple of days. Was treated though for a week with moxifloxacin and metronidazole starting 04/20/2024. Reportedly negative urine and GC chlamydia screening at that time. Has continued to be sexually active using condom. Apparently this dysuria is really at the glans. No hematuria. No unusual discharge. Denies trauma otherwise. Denies constipation. No history of urinary tract infections when young. Related Data Home Medications ?Medication ?Instructions ?Recorded ?Confirmed methylphenidate HCl 27 mg 27 mg PO QAM 11/21/22 11/21/22 tablet,extended release 24 hr (Concerta) Previous Rx's ?Medication ?Instructions ?Recorded Magic Mouthwash See Rx Instructions PO QID PRN 11/21/22 (Lidocaine/Benadryl/Maalox) 120 mL pain #120 mL suspension Allergies Allergy/AdvReac Type Severity Reaction Status Date / Time No Known Drug Allergies Allergy Verified 04/29/24 15:02 Review of Systems Status of ROS: Reports: 6 or more systems reviewed and unremarkable except as noted in History and below Exam Narrative: Exam Narrative: Pleasant. Well muscled. Skin is warm and dry without apparent rash. Breathing easily. Heart in regular rate and rhythm. Abdomen is flat soft and a little tender in the left mid low abdomen. Genitourinary exam is without evidence of hernia. No lesions. No moisture at the tip of the penis. Nontender testicles and epididymal structures. Did YOVANY for prostate check was done as well. While uncomfortable was not painful. No notable pain to palpation of the abdomen or flank otherwise. No SI joint area tenderness. Const: Vital Signs, click to edit/add: Vital Signs - 24 hr 06/05/24 16:25 Temperature 98 F Pulse Rate [Pulse Oximeter] 67 Respiratory Rate 18 Blood Pressure [Ri ght Upper Arm] 145/67 H Pulse Oximetry 99 Oxygen Delivery Me thod Room Air Documenting provider has reviewed patient's vital signs: yes Course Vital Signs Vital signs: Initial Vital Signs Temperature 98 F 06/05/24 16:25 Temperature Source Temporal Artery Scan 06/05/24 16:25 Pulse Rate 67 06/05/24 16:25 Respiratory Rate 18 06/05/24 16:25 Blood Pressure 145/67 H 06/05/24 16:25 Blood Pressure Mean 93 06/05/24 16:25 Pulse Oximetry 99 06/05/24 16:25 Oxygen Delivery Method Room Air 06/05/24 16:25 Vital Signs Temperature 98 F 06/05/24 16:25 Pulse Rate 67 06/05/24 16:25 Respiratory Rate 18 06/05/24 16:25 Blood Pressure 145/67 H 06/05/24 16:25 Pulse Oximetry 99 06/05/24 16:25 Oxygen Delivery Method Room Air 06/05/24 16:25 Temperature 98 F 06/05/24 16:25 Pulse Rate 67 06/05/24 16:25 Respiratory Rate 18 06/05/24 16:25 Blood Pressure 145/67 H 06/05/24 16:25 Pulse Oximetry 99 06/05/24 16:25 Oxygen Delivery Method Room Air 06/05/24 16:25 Medical Decision Making MDM Narrative Medical decision making narrative: Perhaps some initial dysuria has resulted in some other residual spasm/pelvic dysfunction of sorts. Does not have physical evidence of urethritis. Would consider screening again for gonorrhea chlamydia but ideally this would be a morning void as discussed. Belly exam is relatively benign. Differential would include constipation or diverticulitis although duration is unusual and unrelated probably to the dysuria that he is described. Flank pain might represent ureteral stone and colic although does not appear to have that degree of discomfort. Other mass? Urinalysis looks to be without evidence of infection I did discuss doing abdominal imaging but this is probably low yield and after long wait in a busy emergency department he would prefer to follow this up later if necessary. Does have relationship already with Urology which is probably the way go. See patient discharge plan for further discussion Continue to stay hydrated. You might consider trying phenazopyridine, sometimes sold under AZO brand for burning with urination. You can take 100-200 mg per dose. It might be helpful to know if that helps. Pending here is testing again your urine for gonorrhea and chlamydia. I will call you if that is positive. Otherwise I would follow-up with the urologist/urology clinic you already saw. For marked increase in persistent pain particularly in the abdomen, associated vomiting or fever, please be re-evaluated/return. Medical Records Medical records reviewed: Yes I reviewed the patient's medical records Lab Data Lab results reviewed: Yes I reviewed the patient's lab results Labs: Lab Results 06/05/24 06/05/24 Range/Units 16:54 18:34 Urine Color Yellow (Yellow) Urine Appearance Clear (Clear) Urine pH 8.0 (5.0-8.5) Ur Specific [place] 1.020 (1.000-1.030) Urine Protein Negative (Negative) Urine Glucose (UA) Negative (Negative) Urine Ketones Negative (Negative) Urine Blood Negative (Negative) Urine Nitrite Negative (Negative) Urine Bilirubin Negative (Negative) Urine Urobilinogen 0.2 (0.2-1.0) Ur Leukocyte Esterase Negative (Negative) Urine RBC 0-2 (0-2) Urine WBC 0-2 (0-5) Ur Squamous Epith Cells Few (None-Few) Amorphous Sediment Many A (None) Urine Bacteria None (None) C.trachomatis Ampl DNA NOT DETECTED (No Detected) N.gonorrhoeae Ampl DNA NOT DETECTED (No Detected) Discharge Plan Discharge Clinical Impression: Dysuria, Flank pain Patient Disposition: Home, Self-Care Condition: Stable Additional Instructions: Continue to stay hydrated. You might consider trying phenazopyridine, sometimes sold under AZO brand for burning with urination. You can take 100-200 mg per dose. It might be helpful to know if that helps. Pending here is testing again your urine for gonorrhea and chlamydia. I will call you if that is positive. Otherwise I would follow-up with the urologist/urology clinic you already saw. For marked increase in persistent pain particularly in the abdomen, associated vomiting or fever, please be re-evaluated/return. Prescriptions: No Action methylphenidate HCl [Concerta] 27 mg tablet extended release 24hr 27 mg PO QAM Magic Mouthwash (Lidocaine/Benadryl/Maalox) 120 mL suspension See Rx Instructions PO QID PRN (Reason: pain) Qty: 120 0RF Rx Instructions: orally four times daily PRN; Lidocaine Viscous 2 % mucosal solution 40 mL; Maalox 200 mg-200 mg-20 mg/5 mL oral suspension 40 mL; Benadryl 12.5 mg/5 mL oral elixir 40 mL; Per 120 mL SWISH AND SPIT. MAY COMPOUND IF FIRST PRODUCT IS NOT AVAILABLE. Follow Up/Referrals: Provider,Not a Local [Primary Care Provider] - Stand Alone Forms: [employer] Info Instructions
--- OUTSIDE RECORDS SUMMARY | 2024-06-05 18:31 | XMS_ITS | Clinical Summary ---
Author Organization [employer] [facility] Address [address] [place] [address] Care Team Providers Care Insurance Defense Attorney Name Role Phone Selected, No Pcp Primary [...] FOR HIV USPSTF ROUTINE (15-65 YEARS) 2018 [facility] SCRN: HIV-UNIVERSAL SCRN 2018 SCRN: FOR [...] patient's age to complete this topic Insurance [facility]SR [facility] Care Teams Insurance Defense Attorney Relationship Specialty Start Date End Date Selected, No Pcp PCP - General PCP 10/07/19
--- OUTSIDE RECORDS SUMMARY | 2024-06-05 18:31 | XMS_ITS | Clinical Summary ---
Author Organization [facility] Address [address] [place] [address] Care Team Providers Care Psychological Examiner Name Role Phone Staff, Other Clinical Primary Care Provider Unav ailable Allergies No known active allergies Medications methylphenidate 27 mg extended-release tablet Take 27 mg by mouth. 04/06/2024 Active Active Problems No known active problems Encounters Date Type Department Care Team Description 05/10/[address] [address] Luan Atkinson PA Results 05/05/2024 9:35 AM FUR STRETCHER Office Visit [address] [address] Luan Atkinson PA Urinary Problem (discomfort when [...] Comments Blood Pressure 120/62 05/05/2024 9:44 AM FUR STRETCHER Pulse 68 05/05/2024 9:44 AM FUR STRETCHER Temperature 36.4 C (97.6 F) 05/05/2024 9:44 AM FUR STRETCHER Respiratory Rate - - Oxygen Saturation 98% 08/29/2023 2:40 PM CDT Inhaled Oxygen Concentration - - Weight 89 kg (196 lb 4.8 oz) 05/05/2024 9:44 AM FUR STRETCHER Height 185.1 cm (6' 0.87) 08/07/2023 4:12 [...] MARGOT, URINE ([facility]) Routine 05/05/2024 10:58 AM FUR STRETCHER Dysuria Urethritis TRICHOMONAS AMPLIFIED PROBE Routine 05/05/2024 10:58 AM FUR STRETCHER Dysuria UA W/ SEDIMENT EXAM REFLEXED PER CRITERIA Routine 05/05/2024 10:58 AM FUR STRETCHER Dysuria GC CHLAMYDIA TRACH PROBE Routine 05/05/2024 10:58 AM FUR STRETCHER Dysuria ANTI HCV Routine 05/05/2024 10:45 AM FUR STRETCHER Dysuria ANTI HIV 1/2 Routine 05/05/2024 10:45 AM FUR STRETCHER Dysuria TREPONEMA PALLIDUM Routine 05/05/2024 10 :43 AM FUR STRETCHER Dysuria from Last 3 Months Results * MYCOPLASMA GENITALIUM, [facility]ARGOT[facility] (05/05/2024 10:58 AM FUR STRETCHER) Pathologist [facility] [facility] MYCO GENITALIUM UR MARGOT Negative Negative 05/08/2024 10:08 AM FUR STRETCHER [facility]) Urine URINE SPECIMEN / Unknown Non-Blood / Unknown 05/05/2024 10:58 AM FUR STRETCHER 05/05/2024 10:58 AM FUR STRETCHER Narrative [facility] ([facility]) - 05/08/2024 10:08 AM FUR STRETCHER Performed at: - [facility] [place] [address] [id number] Ice Skating Coach: Allen Molina MD, Phone: [phone] us Luan GARZON URINE Shanika l Result [facility] ([facility]) [address] [place] [address], * TRICHOMONAS AMPLIFIED PROBE (05/05/2024 10:58 AM FUR STRETCHER) Pathologist [facility] TRICHOMONAS AMPLIFIED PROBE Negative 05/07/2024 1:31 PM FUR STRETCHER [facility] Other URINE SPECIMEN / Unknown Non-Blood / Unknown 05/05/2024 10:58 AM FUR STRETCHER 05/05/2024 10:58 AM FUR STRETCHER Luan GARZON MICROBIOLOGY Shanika l Result Performing Organization Address [facility]/ZIP Co de Phone Number [facility] [address] [place] [address], [place] * GC CHLAMYDIA [[id number]] - urine (05/05/2024 10:58 AM FUR STRETCHER) CHLAMYDIA PROBE Negative 12:20 PM FUR STRETCHER [facility] N GONORRHOEAE PROBE Negative 05/06/2024 12:20 PM FUR STRETCHER [facility] Other URINE SPECIMEN / Unknown Non-Blood / Unknown 05/05/2024 10:58 AM FUR STRETCHER 05/05/2024 10:58 AM FUR STRETCHER Luan GARZON MICROBIOLOGY Shanika l Result Performing Organization Address [facility] de Phone Number [facility] [address] [place] [address], [place] * UA W/ SEDIMENT EXAM REFLEXED PER CRITERIA [28368.2] (05/05/2024 10:58 AM FUR STRETCHER) COLOR Yellow Yellow Color 05/05/2024 11:33 AM FUR STRETCHER [facility] CLARITY Clear Clear Clarity 05/05/2024 11:33 AM FUR STRETCHER [facility] SPECIFIC GRAVITY,URINE 1.025 1.010, 1.015, 1.020, 1.025 05/05/2024 11:33 AM [facility] PH,URINE 6.0 6.0, 7.0, 8.0, 5.5, 6.5, 7.5, 8.5 05/05/2024 11:33 AM [facility] UROBILINOGEN, QUALITATIVE Normal Normal EU/dl 05/05/2024 11:33 AM [facility] PROTEIN, URINE Negative Negative mg/dL 05/05/2024 11:33 AM [facility] GLUCOSE, URINE Negative Negative mg/dL 05/05/2024 11:33 AM [facility] KETONES,URINE Negative Negative mg/dL 05/05/2024 11:33 AM [facility] BILIRUBIN,URI NE Negative Negative 05/05/2024 11:33 AM [facility] OCCULT BLOOD,URINE Negative Negative 05/05/2024 11:33 AM [facility] NITRITE Negative Negative 05/05/2024 11:33 AM [facility] LEUKOCYTE ESTERASE Negative Negative 05/05/2024 11:33 AM [facility] Urine URINE SPECIMEN / Unknown Non-Blood / Unknown 05/05/2024 10:58 AM FUR STRETCHER 05/05/2024 10:58 AM FUR STRETCHER Result [facility] Luan Atkinson PA URINE Shanika l Result [facility] [address] [place] [address] * ANTI HCV [58614.2] (05/05/2024 10:45 AM FUR STRETCHER) HEPATITIS C ANTIBODY NON-REACTI VE NON-REACT ROS [facility] Comment: HCV antibody was non-reactive. There is no laboratory evidence of HCV infection. In most cases, no further action is required. However, if recent HCV exposure is suspected, a test for HCV RNA (test code 51820) is suggested. For additional information please refer to http://education.Aibo.Gate 53|[employer]/faq/XMA47g2 (This link is being provided for informational/ educational purposes only.) Blood BLOOD SPECIMEN / Unknown 05/05/2024 10:45 AM FUR STRETCHER 05/05/2024 10:46 AM FUR STRETCHER Narrative [facility] - 05/06/2024 2:06 PM FUR STRETCHER FASTING:NO FASTING: NO Result [facility] Luan GARZON SEND OUTS Shanika l Result Performing Organization Address [facility]/State/ZIP Co de Phone Number [facility] [address] [place] [address], [facility] [address] [place] [address] * ANTI HIV 1/2 [19538.0] (05/05/2024 10:45 AM FUR STRETCHER) HIV AG/AB, 4TH GEN NON-REACT ROS NON-REACT ROS [facility] Comment: HIV-1 antigen and HIV-1/HIV-2 antibodies were [...] purpose. For additional information please refer to http://education.ChannelMeter/faq/BRA873 (This link is being provided for informational/ educational purposes only.) The performance of this assay has not been clinically validated in patients less than 2 years old. Blood BLOOD SPECIMEN / Unknown 05/05/2024 10:45 AM FUR STRETCHER 05/05/2024 10:46 AM FUR STRETCHER Narrative [facility] - 05/06/2024 2:06 PM FUR STRETCHER FASTING:NO FASTING: NO Luan GARZON SEND OUTS Shanika l Result [employer] [facility] [address] [place] [address], [facility] [address] [place] [address] * TREPONEMA PALLIDUM [40436.1] (05/05/2024 10:43 AM FUR STRETCHER) TREPONEMA PALLIDUM Non-Reacti ve Non-Reacti ve 05/05/2024 11:57 PM FUR STRETCHER [facility] Blood BLOOD SPECIMEN / Unknown [facility] / Unknown 05/05/2024 10:43 AM FUR STRETCHER 05/05/2024 10:43 AM FUR STRETCHER Luan GARZON SEND OUTS Shanika l Result [facility] [address] [place] [address], from Last 3 Months Insurance [employer] [place] [employer] Care Teams Psychological Examiner Relationship Specialty Start Date End Date Staff, Other Clinical . PCP - General 11/16/21"
--- OUTSIDE RECORDS SUMMARY | 2024-06-05 18:31 | XMS_ITS | Clinical Summary ---
Author Organization [facility] Address [address] [place] [address] Care Team Providers Care Parcel Contractor Name Role Phone Venu Norton MD Primary Care Provider +1- [phone] Allergies No known active allergies Medications methylphenidate [...] 04/08/2007, 7 HPV Vaccine Completed 03/05/2016, 12/20/2014 Procedures Procedure Name Priority Date/Time Associated Diagnosis Comments PREMANAGE Routine 06/05/2024 6:31 PM PST Procedure Note - 06/05/2024 6:31 PM PSTThis note is in progress. Patient has visited an external emergency department or has beenhospitalized outside of Medicine --MOST RECENT VISIT-- ED Admit:06/05/24 18:30 Location:[facility] Attending Provider:Elizabeth Encounter Type:Emergency Major Class:Emergency Chief Complaint:Suspected kidney infection Diagnosis: [facility] V[facility] TRACK[facility] (3 MO.) Visit Date Location [facility] TypeDx/Complaint -------- ------- 06/05/2024 18:30 [facility] MNEmergency Suspected kidney infection INPATIENT VISIT TRACKING (1 MO.) Visit Date Location [facility] Type Dx/Complaint -------- ------- ---- ED VISIT COUNT (12 MO.) Visits Location ------ --------- [address] [facility] 1 Total Note: Visits indicate total known visits. --- --CARE GUIDELINES-- (Below are the most recent care guidelines entered by a Medicine careprovider in [facility]. If Medicine guidelines do not exist in [facility], the mostrecent care guideline entered by an external hospital care provider isdisplayed.) [facility] has no Care Guidelines for this patient. Security Events No recent Security Events currently on file --CARE PROVIDERS-- CARE PROVIDERS Name Phone Type Service Dates ---- ----- ---- VENU NORTON Pediatrics Unknown -Current from Last 3 Months Insurance [facility] [employer] Care Teams Parcel Contractor Relationship Specialty Start Date End Date Venu Norton MD [address] [address] PCP - General Pediatric Medicine 12/29/17
--- OUTSIDE RECORDS SUMMARY | 2024-06-05 18:32 | XMS_ITS | Encounter Summary ---
Author Organization [facility] Address [address] [place] [address] Care Team Providers Care Contract Administration Specialist Name Role Phone Venu Norton MD Primary Care Provider +1- [phone] Encounter Details Date Type Department Care Team (Late st Contact Info) Description 08/29/2004 [facility] VISIT [facility] Avery Agustin MD [address] [address] Social History Tobacco Use Types Packs/Day Years [...] on filedocumented in this encounter Care Teams Contract Administration Specialist Relationship Specialty Start Date End Date Venu Norton MD [facility] [address] [address] PCP - General Pediatric Medicine 12/29/17 documented as of this encounter
--- OUTSIDE RECORDS SUMMARY | 2024-06-05 18:32 | XMS_ITS | Clinical Summary ---
Author Organization [facility] Address [address] [place] [address] Care Team Providers Care Preventive Medicine Specialist Name Role Phone Unavailable Primary Care Provider Unavailabl e Source Comments NOTE: The information displayed by Care Everywhere is extracted from the complete medical record and may not identify all current or past patient conditions.[facility] Allergies No known active allergies Medications No [...] exists Vaccine: COVID-19 ( season) 2023 Vaccine: [id number] (7 - T d or Tdap) 02/24/2024 02/23/2014, 03/07/2008, 07/11/2004, Additional history exists Vaccine: HPV Completed 03/05/2016, 12/20/[address] [facility] Advance Directives For more information, please contact: [phone] Documents on File Type Date Recorded Patient Travel Specialist Expl anation Advance Directive and Living Will Durable Power of Fabric Finisher 01/04/2013 11:56 AM Advance Directive and Living Will 01/04/2013 11:56 AM
--- OUTSIDE RECORDS SUMMARY | 2024-06-05 18:32 | XMS_ITS | Encounter Summary ---
Author Organization [facility] Address [address] [place] [address] Care Team Providers Care Food And Drug Inspector Name Role Phone Venu Norton MD Primary Care Provider +1- [phone] Encounter Details Date Type Department Care Team (Late st Contact Info) Description 03/31/2004 [facility] VISIT [facility] Ursula Hoffman MD [address] [place] [address] [phone] - [place] [address] Social History Tobacco Use Types Packs/Day Years [...] on filedocumented in this encounter Care Teams Food And Drug Inspector Relationship Specialty Start Date End Date Venu Norton MD [facility] [address] [address] PCP - General Pediatric Medicine 12/29/17 documented as of this encounter
--- OUTSIDE RECORDS SUMMARY | 2024-06-05 18:32 | XMS_ITS | Encounter Summary ---
Author Organization [facility] Address [address] [place] [address] Care Team Providers Care Welfare Centre Manager Name Role Phone Venu Norton MD Primary Care Provider +1- [phone] Encounter Details Date Type Department Care Team (Late st Contact Info) Description 05/21/2004 [facility] VISIT [facility] FLU W RESP [...] manifestations documented in this encounter Care Teams Welfare Centre Manager Relationship Specialty Start Date End Date Venu Norton MD [facility] [address] [address] PCP - General Pediatric Medicine 12/29/17 documented as of this encounter
--- OUTSIDE RECORDS SUMMARY | 2024-06-05 18:32 | XMS_ITS | Continuity of Care Document ---
Author Organization [facility] Address [address] [facility] [address] [place] [address] Phone Care Team Providers Care Straw Hat Brusher Name Role Phone Jassi Loya MD Unavailable [...] Providers Copied on Encounter [facility], [address] [place] [address], [place], [id number], tel:[phone] [facility] [address] No Information 5 Shalini Keene. [address] [place] [address] [address], [place], [id number] , [place]. tel: [phone] [facility], [address] [place] [address] [address], [place], [id number], [place] tel:[phone] [facility] [address] Tear of left acetabular labrum, initial encounterChronic left hip pain 4 Shalini Keene. [address] [place] [address] [address], [place], [id number] , [place]. tel: [phone] Referring Provider: Jassi Loya, [address] [place] [address], [place], [address] . tel:[phone] [facility], [address] [place] [address] [address], [place], [id number], [place] tel:[phone] [facility] No Information 4 Bebe Kirkland. [address] [place] [address] [address], [place] [address], [id number] , [place]. tel: [phone] Referring Provider: Jassi Loya, [address] [place] [address], [place], [address] . tel:[phone] [facility], [address] [place] [address] [address], [place], [id number], [place] tel:[phone] [facility] No Information 4 Shalini Keene. [address] [place], [facility] 700, [place], [id number] , [place]. tel: [phone] Referring Provider: Jassi Loya, [address] [place] [address] [address], [place], [address] . tel:[phone] [facility], [address] [facility] [address], [place], [place], [id number], [place] tel:[phone] [facility] [address] No Information 4 Shalini Keene. [address] [place] [address], [facility] 700, [place], [id number] , [place]. tel: [phone] Referring Provider: Jassi Loya, [address] [place] [address] [address], [place], [address] . tel:[phone] OFFICE/OUTPA TIENT VISIT, [facility], [address] [place] [address] [address], [place], [id number], [place] tel:[phone] [facility] [address] Tear of left acetabular labrum, initial encounter 4 Shalini Keene. [address] [place], [facility] 700, [place], [id number] , [place]. tel: [phone] Referring Provider: Jassi Loya, [address] [place] [address] [address], [place], [address] . tel:[phone] [facility], [address] [place] [address] [address], [place], [id number], [place] tel:[phone] [facility] [address] Chronic left hip painTear of left acetabular labrum, initial encounter 4 Shalini Bajwa. [address] [place] [address], [facility] 700, [place], [id number] , [place]. tel: [phone] Referring Provider: Aydee Loya, [address] [place] [address] [address], [place], [address] . tel:[phone] OFFICE/OUTPA TIENT VISIT, EST [facility], [address] [place] [address] [address], [place], [id number], [place] tel:[phone] [facility] [address] Tear of left acetabular labrum, initial encounter 4 Shalini Keene. [address] [place] [address], [facility] 700, [place] [address], [id number] , [place]. tel: [phone] Referring Provider: Jasis Loya, [address] [place] [address] [address], [place], [address] . tel:[phone] OFFICE/OUTPA TIENT VISIT, [facility], [address] [place] [address] [address], [place], [id number], [place] tel:[phone] [facility] [address] Tear of left acetabular labrum, initial encounter 4 Shalini Keene. [address] [place] [address] [address], [place] [address], [id number] , [place]. tel: [phone] Referring Provider: Jassi Loya, [address] [place] [address] [address], [place], [address] . tel:[phone] [facility], [address] [place] [address] [address], [place] [address], [id number], [place] tel:[phone] [facility] No Information 4 Shalini Keene. [address] [place] [address], [facility] 700, [place] [address], [id number] , [place]. tel: [phone] Referring Provider: Jassi Loya, [address] [place] [address] [address], [place], [address] . tel:[phone] OFFICE/OUTPA TIENT VISIT, [facility], [address] [place] [address] [address], [place] [address], [id number], [place] tel:[phone] [facility] [address] Tear of left acetabular labrum, initial encounter 4 Shalini Keene. [address] [place] [address] [address], [place], [id number] , [place]. tel: [phone] Referring Provider: Jassi Loya, [address] [place] [address], [place], [address] . tel:[phone] Family History Family Member Type Diagnosis Age At Onset No Information Payers Payer name Insurance type Covered alliance party ID Authoriza job(s) [facility] [id number] Social History Type Description Quantity Date Captured Comments Sex Male Smoking Status No Information Chief Complaint And Reason For Visit No Information Reason For Referral Reason For Referral No Information Plan Of Treatment Date Type Action Status Future Order: Radiology Order NE EDLE LOCALIZATION BY XRAY, Left ([id number]), Sent on: Sent Future Order: Radiology Order MR I ARTHROGRAM LWR EXTR W/DYE, Left ([id number]), Sent on: Sent History Of Present Illness Encounter Date Complaint History Of Prese nt Illness No Information Functional Status Date Functional Assessmen t No Information Instructions Date Instruction Additional Infor mation No Information Assessments Type Assessment Date No Information Patient Care Teams Name Effective Dates (start - stop) Status Members No Information
--- OUTSIDE RECORDS SUMMARY | 2024-06-05 18:32 | XMS_ITS | Clinical Summary ---
Author Organization [facility] Address [address] [place] [address] Care Team Providers Care Women'S Lacrosse Coach Name Role Phone Venu Norton MD Primary [...] patient's age to complete this topic Insurance [facility] Advance Directives * Full Support (Latest Code Status on File) Date Activated Date Inactivated Comments 07/01/2020 11:13 PM 07/02/2020 8:53 PM Care Teams Women'S Lacrosse Coach Relationship Specialty Start Date End Date Venu Norton MD [address] [place] [address] PCP - General Pediatrics 08/24/17 Murtaza Rachel Grease Maker Head 07/03/20
--- OUTSIDE RECORDS SUMMARY | 2024-06-05 18:32 | XMS_ITS | Encounter Summary ---
Author Organization [facility] Address [address] [place] [address] Care Team Providers Care Basketball Player Name Role Phone Venu Norton MD Primary Care Provider Murtaza Rachel Unavailable Unavailable Encounter Details Date Type Department Care Team (Late st Contact Info) Description 07/01/2020 Intake Admitting [address] [address] Social History Tobacco Use Types Packs/Day Years [...] on filedocumented in this encounter Care Teams Basketball Player Relationship Specialty Start Date End Date Venu Norton MD [address] [place] [address] PCP - General Pediatrics 08/24/17 Murtaza Rachel Executive Advisor 07/03/20 documented as of this encounter
--- OUTSIDE RECORDS SUMMARY | 2024-06-05 18:32 | XMS_ITS | Encounter Summary ---
Author Organization [facility] Address [address] [place] [address] Care Team Providers Care Business Services Assistant Name Role Phone Venu Norton MD Primary Care Provider [phone]- [phone] Encounter Details Date Type Department Care Team (Late st Contact Info) Description 05/19/2004 [facility] VISIT [facility] Columba Gregory [...] origin documented in this encounter Care Teams Business Services Assistant Relationship Specialty Start Date End Date Venu Norton MD [facility] [address] [address] PCP - General Pediatric Medicine 12/29/17 documented as of this encounter
--- OUTSIDE RECORDS SUMMARY | 2024-06-05 18:32 | XMS_ITS | Encounter Summary ---
Author Organization [facility] Address [address] [place] [address] Care Team Providers Care Assistant Superintendent For Curriculum Name Role Phone Venu Norton MD Primary Care Provider +1- [phone] Encounter Details Date Type Department Care Team (Late st Contact Info) Description 05/01/2004 [facility] VISIT [facility] Jamie Pruitt MD Address Alert - Do Not Mail Dept. Of Pediatrics [address] [place], [place] FEVER Social History Tobacco Use Types [...] regulation documented in this encounter Care Teams Assistant Superintendent For Curriculum Relationship Specialty Start Date End Date Venu Norton MD [facility] [address] [place] [address] PCP - General Pediatric Medicine 12/29/17 documented as of this encounter
--- OUTSIDE RECORDS SUMMARY | 2024-06-05 18:32 | XMS_ITS | Encounter Summary ---
Author Organization [facility] Address [address] [place] [address] Care Team Providers Care Stevedoring Supervisor Name Role Phone Venu Norton MD Primary Care Provider +1- [phone] Encounter Details Date Type Department Care Team (Late st Contact Info) Description 01/30/2004 [facility] VISIT [facility] Jamie Pruitt MD Address Alert - Do Not Mail Dept. Of Pediatrics [address] [place], [place] DERMATITIS NOS Social History Tobacco Use [...] cause documented in this encounter Care Teams Stevedoring Supervisor Relationship Specialty Start Date End Date Venu Norton MD [facility] [address] [place] [address] PCP - General Pediatric Medicine 12/29/17 documented as of this encounter
[2024-06-05 20:28] LABS: Chlamydia DNA Amplified* NOT DETECTED (No Detected); GC DNA Amplified* NOT DETECTED (No Detected)
== END 2024-06-05 19:13 | disposition home or self-care (01) ==
PROVIDERS: Emergency Provider Family Medicine
DX: R30.0 Dysuria (principal); R10.9 Unspecified abdominal pain
CPT/HCPCS: 81001; 87491; 87591; 99283; 99284

== ENCOUNTER 2024-08-15 00:15 | Emergency (ER) | payer BC, SELFPAY ==
[2024-08-15 00:18] VITALS: BP 132/75; PULSE 85; RESP 16; O2SAT 97; BMI 25.7
[2024-08-15] MEDS: LIDOCAINE 1%-EPI 1:100,000 20 ML INFILTRATI (00:43)
[2024-08-15] MEDS: TETANUS-DIPHTHERIA TOXOIDS/PF 0.5 ML SYRINGE IM (00:54)
--- NOTE | 2024-08-15 01:24 | ED_ITS ---
HPI - General Adult General Chief complaint: Laceration/Wound Stated complaint: head lac Time Seen by Provider: 08/15/24 00:35 Source: patient Mode of arrival: ambulatory Limitations: no limitations History of Present Illness HPI narrative: 19-year-old male presents to the ED after a mild head injury. He reports that he was drinking in his apartment building with friends. He consumed about 6 alcoholic beverages over 3-1/2 hours. They decided it would be a fine idea to go sliding down the staircase. Unfortunately, patient hit the back of his head and noticed bleeding to the back of the scalp. Witnessed by friend who accompanies him here tonight. Does not take any anticoagulants, no history of seizures or neurological disorder. Has had a couple of mild concussions from sports but nothing prolonged or with any long-term damage. Unfortunately they notice a small laceration to the back of the scalp which they could not get to stop bleeding, therefore coming to the ED. he does admit that the decision was suboptimal to go sledding down a staircase but admits it was for recreation. There was no assault. He has been conversing normally, behaving normally per friend. No loss of consciousness or other abnormality. No pain in other areas. He reports his past medical history is benign. No major long-term health problems, no allergies. ROS is notable for the skin symptoms as above only. Otherwise denies times 12 systems. Related Data Home Medications ?Medication ?Instructions ?Recorded ?Confirmed methylphenidate HCl 27 mg 27 mg PO QAM 11/21/22 11/21/22 tablet,extended release 24 hr (Concerta) Previous Rx's ?Medication ?Instructions ?Recorded Magic Mouthwash See Rx Instructions PO QID PRN 11/21/22 (Lidocaine/Benadryl/Maalox) 120 mL pain #120 mL suspension Allergies Allergy/AdvReac Type Severity Reaction Status Date / Time No Known Drug Allergies [facility] Ver[facility]24 [facility] Social History Smoking Status: Never smoker How often do you have a drink containing alcohol: monthly or less AUDIT-C Alcohol total score: 1 Non-prescribed substance use: denies use service: No Exam Const: Vital Signs, click to edit/add: Vital Signs - 24 hr 08/15/24 00:18 Pulse Rate [Left P ulse Oximeter] 85 Respiratory Rate 16 Blood Pressure [Ri ght Upper Arm] 132/75 Pulse Oximetry 97 Oxygen Delivery Me thod Room Air Documenting provider has reviewed patient's vital signs: yes Common normals: no apparent distress and alert General appearance: cooperative and well kempt Other: Friendly and cooperative. Good historian. Does not remember date of last tetanus shot. HENMT: Other: 2.5 cm laceration to the right occiput, horizontal. Mild active oozing. Full skin thickness. Visible muscular layer covering the bone, not injured. No other areas of laceration noted on the scalp. No signs of other facial injuries, deformities in the ear. TMs are normal bilaterally. Nares are normal and patent bilaterally. Oropharynx with normal appearing mucosa. No signs of dental injury or fracture. Eye: Common normals: PERRL, EOMs intact bilaterally and conjunctivae normal General eye: normal appearance of both eyes Conjunctiva: conjunctiva(e) normal Pupil: PERRL Neck & C-Spine: Common normals: full ROM, no lymphadenopathy and no meningeal signs General: normal visual inspection Resp: Common normals: normal respiratory effort, no use of accessory muscles and clear to auscultation bilaterally Effort & inspection: able to speak in complete sentences Auscultation: clear to auscultation bilaterally Cardio: Common normals: regular rate and regular rhythm Rate: regular rate Rhythm: regular rhythm Other: Regular peripheral pulses. Radial bilaterally. Extremity: Common normals: normal to inspection and normal capillary refill Other: Joints without any swelling, deformity or abnormal movements. Neuro: [place] Coma Scale: document GCS findings (15) Common normals: moves all extremities and no focal motor deficits Sensorium/orientation: alert Meningeal signs: no meningeal signs Speech: speech normal Motor exam: no movement abnormalities noted Psych: Common normals: speech normal Appearance: well kempt Attitude: engaged Activity/motor behavior: appropriate eye contact Speech: normal speech Mood and affect: euthymic mood Attention/concentration: attention grossly intact Insight: insight good Judgement: judgment good Skin: Narrative: Other than the laceration on the right occiput, no other areas of injury. Course Course ED Course: Counseled patient on management, unfortunately with the thick skin on scalp, they tend to bleed and do not tend to close well. His hair is too short for opposition technique closure. Verbal consent is obtained. Procedure: Laceration repair: Scalp is well cleansed with Hibiclens soap, no signs of foreign body seen. Irrigated. Injected with 3 mL of 1% lidocaine with epinephrine with good anesthesia. 2 throws of simple interrupted 3-0 nylon suture were used to close wound. With a little surprised that it only took 2 stitches but it was well closed, reapproximated and hemostatic with only the 2 stitches. Covered in antibiotic ointment and counseled on care. Tried not to disrupt anything for the next 8 hours. After that, may shower as usual. Counseled there may be some mild oozing and of course there will be blood in the shower as we did not get all of it out of his hair. He may have some mild head injury but there are no signs of severe head injury. I do not recommend CT scan based on risk of radiation and reassuring exam. No signs of severe intoxication that would mask a major injury. Counseled on Tylenol and ibuprofen as needed for headache and mild discomfort. Mild signs of head injury like dizziness, photophobia fatigue would be expected but should hetal within 48 hours. No alcohol for 48 hours. Rest encouraged. Does not need to be kept awake after this head injury. Seizures, persistent vomiting or other signs of head injury were reviewed as indications to come back to the ED. Written instructions provided, alarm symptoms reviewed with friend who is present. Tetanus shot updated prior to discharge. Counseled to apply antibiotic ointment or plain V aseline to the wound twice daily for the next 8-10 days. Suture removal will need to be scheduled at the clinic for 7-10 days from now. He verbalizes understanding and agreement. Vital Signs Vital signs: Initial Vital Signs Temperature Source Temporal Artery Scan 08/15/24 00:18 Pulse Rate 85 08/15/24 00:18 Pulse Rhythm Regular 08/15/24 00:18 Respiratory Rate 16 08/15/24 00:18 Blood Pressure 132/75 08/15/24 00:18 Blood Pressure Mean 94 08/15/24 00:18 Blood Pressure Position Sitting 08/15/24 00:18 Pulse Oximetry 97 08/15/24 00:18 Oxygen Delivery Method Room Air 08/15/24 00:18 Vital Signs Pulse Rate 85 08/15/24 00:18 Respiratory Rate 16 08/15/24 00:18 Blood Pressure 132/75 08/15/24 00:18 Pulse Oximetry 97 08/15/24 00:18 Oxygen Delivery Method Room Air 08/15/24 00:18 Pulse Rate 85 08/15/24 00:18 Respiratory Rate 16 08/15/24 00:18 Blood Pressure 132/75 08/15/24 00:18 Pulse Oximetry 97 08/15/24 00:18 Oxygen Delivery Method Room Air 08/15/24 00:18 Medications Administered Medications: Discontinued Medications Generic Name Dose Route Start Last Admin Trade Name Scott PRN Reason Stop Dose Admin Lidocaine/Epinephrine 20 ml 08/15/24 00:35 08/15/24 00:43 Lidocaine 1%-Epi 1:100,000 INFILTRATI 08/15/24 00:36 20 ml ONCE ONE Administration Tetanus/Diphtheria Toxoids Adsorbed 0.5 ml 08/15/24 00:50 08/15/24 00:54 Tetanus-Diphtheria Toxoids/Pf 0.5 Ml Syringe IM 08/15/24 00:51 0.5 ml .ONCE ONE Administration Discharge Plan Discharge Clinical Impression: Laceration of occipital scalp Patient Disposition: Home w/ Parent or Adult Condition: Improved Instructions: Laceration (DC) Additional Instructions: As we discussed, 2 stitches closed the wound on the back of your scalp. It is common to still have some slight oozing. Try not to wash her hair or get anything wet for the next 8 hours. After that, you may shower as usual. You will notice some blood in the shower. You may have a mild headache and other symptoms of mild head injury like dizziness, fatigue and light sensitivity for a couple of days. There are no signs of severe head injury on your exam today and I do not recommend a CT scan to look further, as the risk of radiation does seem to outweigh the benefit. For pain, you may use Tylenol 1000 mg every 6 hours and or ibuprofen 600 mg every 6 hours. I would like for you to apply some Vaseline or antibiotic ointment twice daily on the scalp wound to help things heal more easily and make the stitches easier to take out. Please make a clinic appointment to have the stitches removed in about 8-10 days. If you have seizure, loss of consciousness or other symptoms of severe head injury, please return to the emergency department. Rest for the remainder of the night, no more alcohol for 48 hours. Activity Level: Activity as Tolerated Discharge Diet: Regular Prescriptions: No Action methylphenidate HCl [Concerta] 27 mg tablet extended release 24hr 27 mg PO QAM Magic Mouthwash (Lidocaine/Benadryl/Maalox) 120 mL suspension See Rx Instructions PO QID PRN (Reason: pain) Qty: 120 0RF Rx Instructions: orally four times daily PRN; Lidocaine Viscous 2 % mucosal solution 40 mL; M aalox 200 mg-200 mg-20 mg/5 mL oral suspension 40 mL; Benadryl 12.5 mg/5 mL oral elixir 40 mL; Per 120 mL SWISH AND SPIT. MAY COMPOUND IF FIRST PRODUCT IS NOT AVAILABLE. Follow Up/Referrals: Provider,Not a Local [Primary Care Provider] - Stand Alone Forms: MyHealth Info Instructions
--- OUTSIDE RECORDS SUMMARY | 2024-08-15 17:40 | XMS_ITS | Encounter Summary ---
Author Organization [facility] Address [address] [place] [address] Care Team Providers Care Dial Buffer Name Role Phone Venu Norton MD Primary Care Provider +1- [phone] Encounter Details Date Type Department Care Team (Late st Contact Info) Description 03/31/2004 [facility] VISIT [facility] Ursula Hoffman MD [address] [place] [address] [phone] - [place] [address] Social History Tobacco Use Types Packs/Day Years [...] on filedocumented in this encounter Care Teams Dial Buffer Relationship Specialty Start Date End Date Venu Norton MD [facility] [address], [place] [address] PCP - General Pediatric Medicine 12/29/17 documented as of this encounter
--- OUTSIDE RECORDS SUMMARY | 2024-08-15 17:40 | XMS_ITS | Clinical Summary ---
Author Organization [facility] Address [address] [place] [address] Care Team Providers Care Locker Plant Attendant Name Role Phone Selected, No Pcp Primary [...] FOR HIV USPSTF ROUTINE (15-65 YEARS) 2018 [facility] SCRN: HIV-UNIVERSAL SCRN 2018 SCRN: FOR HEPATITIS C ROUTINE (18-79 Years) 2021 IMM: DTAP/TDAP/TD (7 - Td or Tdap) 02/24/2024 02/23/2014, 03/07/2008, 03/07/2008, Additional history exists BMI >=25 AND <30 03/31/2024 IMM: INFLUENZA (AGE > 6 MONTHS) (Season Ended) 2024 02/26/2022, 02/02/2020, 05/26/2019, Additional history exists IMM: RSV ( patients and Patients AGE [...] patient's age to complete this topic Insurance [facility] Care Teams Locker Plant Attendant Relationship Specialty Start Date End Date Selected, No Pcp PCP - General PCP 10/07/19
--- OUTSIDE RECORDS SUMMARY | 2024-08-15 17:40 | XMS_ITS | Clinical Summary ---
Author Organization [facility] Address [address] [place] [address] Care Team Providers Care Consulting Services Manager Name Role Phone eVnu Norton MD Primary Care Provider +1- [phone] Allergies No known active allergies Medications methylphenidate [...] Last Done Comments Hepatitis C Screening 2003 Depression Screening (PHQ-2) 2015 HIV Screening 2018 Well Care: 16y-21y 2019 04/25/2010, 0 08/14/2009, 03/07/2008 Meningococcal B Vaccine (2 of 2 - Bexsero SCDM 2-dose series) 02/10/2022 08/10/2021 COVID-19 Vaccine ( season) 2023 02/26/2022, 04/25/2021, 08/14/2020, Additional history exists DTaP, Tdap and Td Vaccines (7 - Td or Tdap) 02/24/2024 02/23/2014, 03/07/2008, 07/11/2004, Additional history exists Influenza Vaccine (Season Ended) 2024 02/02/2020, 05/26/2019, 05/22/2018, Additional history exists Pneumococcal Vaccine: Pediatrics (0-5 years) and At-Risk Patients (6-49 years) Aged Out 2003, 2003 No longer eligibl e based on patient's age to complete this topic Hepatitis B Vaccine Completed 2003, 2003, 2003 Hepatitis A Vaccine Completed 04/08/2007, 7 HPV Vaccine Completed 03/05/2016, 12/20/2014 Procedures Procedure Name Priority Date/Time Associated Diagnosis Comments PREMANAGE Routine 08/15/2024 1:01 AM PDT PREMANAGE Routine 06/05/2024 7:13 PM PST from Last 3 Months Results * PREMANAGE (08/15/2024 1:01 AM PDT) Only the most recent of2 resultswithin the time period is included. 08/15/2024 1:01 AM PDT Narrative [facility] - 08/15/2024 1:01 AM PDT Patient has visited an external emergency department or has been hospitalized outside of Medicine --MOST RECENT VISIT-- ED Admit:08/15/24 00:55 ED Discharge:08/15/24 01:00 Location:[facility] Attending Provider:Mimi Encounter Type:Emergency Major Class:Emergency Chief Complaint:head lac Diagnosis: ED/[facility] VISIT TRACKING (3 MO.) Visit Date Location [facility] Type Dx/Complaint -------- ------- ---- 08/15/2024 00:55 [facility] Emergency head lac 06/05/2024 18:30 [facility] Emergency -Dysuria INPATIENT VISIT TRACKING (1 MO.) Visit Date Location [facility] Type Dx/Complaint -------- ------- ---- ED VISIT COUNT (12 MO.) Visits Location ------ --------- [address] [facility] 2 Total Note: Visits indicate total known visits. --CARE GUIDELINES-- (Below are the most recent care guidelines entered by a Medicine care provider in [facility]. If Medicine guidelines do not exist in [facility], the most recent care guideline entered by an external hospital care provider is displayed.) [facility] has no Care Guidelines for this patient. Security Events No recent Security Events currently on file --CARE PROVIDERS-- CARE PROVIDERS Name Phone Type Service Dates ---- ----- ---- VENU NORTON Unknown Pediatrics Unknown - Current Procedure Note EXTERNAL ED PHYSICIAN - 08/14/2024 Patient has visited an external emergency department or has beenhospitalized outside of [facility] --MOST RECENT VISIT-- ED Admit:08/15/24 00:55 ED Discharge:08/15/24 01:00 Location:[facility] Attending Provider:Mimi Encounter Type:Emergency Major Class:Emergency Chief Complaint:head lac Diagnosis: ED/[facility] VISIT TRACKING (3 MO.) Visit Date Location [facility] TypeDx/Complaint -------- ------- 08/15/2024 00:55 [facility]. MNEmergency head lac 06/05/2024 18:30 [facility]. MNEmergency -Dysuria INPATIENT VISIT TRACKING (1 MO.) Visit Date Location [facility] Type Dx/Complaint -------- ------- ---- ED VISIT COUNT (12 MO.) Visits Location ------ --------- [address] [facility] 2 Total Note: Visits indicate total known visits. --CARE GUIDELINES-- (Below are the most recent care guidelines entered by a Medicine careprovider in [facility]. If Medicine guidelines do not exist in [facility], the mostrecent care guideline entered by an external hospital care provider isdisplayed.) [facility] has no Care Guidelines for this patient. Security Events No recent Security Events currently on file --CARE PROVIDERS-- CARE PROVIDERS Name Phone Type Service Dates ---- ----- ---- VENU NORTON Unknown Pediatrics Unknown -Current us External Ed Physician OTHER Final Resu lt [facility] from Last 3 Months Insurance [employer] Care Teams Consulting Services Manager Relationship Specialty Start Date End Date Venu Norton MD [address] [address] PCP - General Pediatric Medicine 12/29/17
--- OUTSIDE RECORDS SUMMARY | 2024-08-15 17:40 | XMS_ITS | Encounter Summary ---
Author Organization [facility] Address [address] [place] [address] Care Team Providers Care Explosive Ordnance Disposal Manager Name Role Phone Venu Norton MD Primary Care Provider +1- [phone] Encounter Details Date Type Department Care Team (Late st Contact Info) Description 08/29/2004 [facility] VISIT [facility] Avery Agustin MD [address] [address] Social History Tobacco Use Types Packs/Day Years [...] on filedocumented in this encounter Care Teams Explosive Ordnance Disposal Manager Relationship Specialty Start Date End Date Venu Norton MD [facility] [address] [address] PCP - General Pediatric Medicine 12/29/17 documented as of this encounter
--- OUTSIDE RECORDS SUMMARY | 2024-08-15 17:40 | XMS_ITS | Clinical Summary ---
Author Organization [facility] Address [address] [place] [address] Care Team Providers Care Program Attendant Name Role Phone Staff, Other Clinical Primary [...] Comments Blood Pressure 120/62 05/05/2024 9:44 AM DIFFUSION OPERATOR Pulse 68 05/05/2024 9:44 AM DIFFUSION OPERATOR Temperature 36.4 C (97.6 F) 05/05/2024 9:44 AM DIFFUSION OPERATOR Respiratory Rate - - Oxygen Saturation 98% 08/29/2023 2:40 PM CDT Inhaled Oxygen Concentration - - Weight 89 kg (196 lb 4.8 oz) 05/05/2024 9:44 AM DIFFUSION OPERATOR Height 185.1 cm (6' 0.87) 08/07/2023 4:12 PM CD T Body Mass Index - - Plan of Treatment Health Maintenance Due Date Last Done Comments Tdap 2014 Depression screening for age 12+ 2015 HPV series for age 9-26 (1 - Male 3-dose series) 2018 Tetanus booster 2023 COVID-19 vaccine series ( - season) 2023 07/22/2020 BMI (ht and wt on same day) for age 18+ 08/06/2024 08/07/2023 Influenza Vaccine (Season Ended) 2024 HIV for age 15-65 Completed 05/05/2024 Hepatitis C screening for ag e 18-79 Completed 05/05/2024 Meningococcal series for age 11-21 Aged Out No longer eligible based on patient's age to complete this topic Pneumococcal series for age 6-49 Aged Out No longer eligible based on patient's age to complete this topic Procedures Procedure Name Priority Date/Time Associated Diagnosis Comments ANTI HIV 1/2 Routine 05/05/2024 10:45 AM DIFFUSION OPERATOR Dysuria ANTI HCV Routine 05/05/2024 10:45 AM DIFFUSION OPERATOR Dysuria from Last 3 Months or Most Recently Relevant to Health Maintenance Results * ANTI HCV [76459.2] (05/05/2024 10:45 AM DIFFUSION OPERATOR) HEPATITIS C ANTIBODY NON-REACTI VE NON-REACT ROS [facility] Comment: HCV antibody was non-reactive. There is no laboratory evidence of HCV infection. In most cases, no further action is required. However, if recent HCV exposure is suspected, a test for HCV RNA (test code 38800) is suggested. For additional information please refer to http://CommonTime.[employer]Model Sports/faq/ORT49e7 (This link is being provided for informational/ educational purposes only.) Blood BLOOD SPECIMEN / Unknown 05/05/2024 10:45 AM DIFFUSION OPERATOR 05/05/2024 10:46 AM DIFFUSION OPERATOR Narrative [facility] - 05/06/2024 2:06 PM DIFFUSION OPERATOR FASTING:NO FASTING: NO Luan GARZON SEND OUTS Shanika l Result [facility] [address] [place] [address], [facility] [address] [place] [address] * ANTI HIV 1/2 [48240.0] (05/05/2024 10:45 AM DIFFUSION OPERATOR) [facility] HIV AG/AB, 4TH GEN NON-REACT ROS NON-REACT ROS [facility] Comment: HIV-1 antigen and HIV-1/HIV-2 antibodies were [...] purpose. For additional information please refer to http://CommonTime.FastModel Sports/faq/XMN949 (This link is being provided for informational/ educational purposes only.) The performance of this assay has not been clinically validated in patients less than 2 years old. Blood BLOOD SPECIMEN / Unknown 05/05/2024 10:45 AM DIFFUSION OPERATOR 05/05/2024 10:46 AM DIFFUSION OPERATOR Narrative [facility] - 05/06/2024 2:06 PM DIFFUSION OPERATOR FASTING:NO FASTING: NO Luan GARZON SEND OUTS Shanika l Result [facility] [address] [place] [address], [place] [phone] [facility] [address] [place] [address] from Last 3 Months or Most Recently Relevant to Health Maintenance Insurance [employer] Care Teams Program Attendant Relationship Specialty Start Date End Date Staff, Other Clinical . PCP - General 11/16/21
--- OUTSIDE RECORDS SUMMARY | 2024-08-15 17:40 | XMS_ITS | Clinical Summary ---
Author Organization [facility] Address [address] [place] [address] Care Team Providers Care Intelligence Analyst Name Role Phone Venu Norton MD Primary [...] of 2 - Standard) 2019 COVID-19 Vaccine ( - 2023- season) 2023 DTaP/Tdap/Td Vaccines (7 - Td or Tdap) 02/24/2024 02/23/2014, 03/07/2008, 03/07/2008, Additional history exists Influenza Vaccine (Season Ended) 2024 02/02/2020, 05/26/2019, 05/26/2019, Additional history exists Pneumococcal Vaccine Aged Out [...] patient's age to complete this topic Insurance [facility] Advance Directives * Full Support (Latest Code Status on File) Date Activated Date Inactivated Comments 07/01/2020 11:13 PM 07/02/2020 8:53 PM Care Teams Intelligence Analyst Relationship Specialty Start Date End Date Venu Norton MD [address], [place] [address] PCP - General Pediatrics 08/24/17 Murtaza Rachel Folder Machine 07/03/20
--- OUTSIDE RECORDS SUMMARY | 2024-08-15 17:40 | XMS_ITS | Encounter Summary ---
Author Organization [facility] Address [address] [place] [address] Care Team Providers Care Diving Supervisor Name Role Phone Venu Norton MD Primary Care Provider +1- [phone] Encounter Details Date Type Department Care Team (Late st Contact Info) Description 05/19/2004 [facility] VISIT [facility] Columba Gregory MD [...] origin documented in this encounter Care Teams Diving Supervisor Relationship Specialty Start Date End Date Venu Norton MD [facility] [address] [address] PCP - General Pediatric Medicine 12/29/17 documented as of this encounter
--- OUTSIDE RECORDS SUMMARY | 2024-08-15 17:40 | XMS_ITS | Encounter Summary ---
Author Organization [facility] Address [address] [place] [address] Care Team Providers Care Solar Sales Advisor Name Role Phone Venu Norton MD Primary Care Provider +1- [phone] Encounter Details Date Type Department Care Team (Late st Contact Info) Description 01/30/2004 [facility] VISIT [facility] Jamie Pruitt MD Address Alert - Do Not Mail Dept. Of Pediatrics [address] [place], [place] DERMATITIS NOS Social History Tobacco Use [...] cause documented in this encounter Care Teams Solar Sales Advisor Relationship Specialty Start Date End Date Venu Norton MD [facility] [address] [place] [address] PCP - General Pediatric Medicine 12/29/17 documented as of this encounter
--- OUTSIDE RECORDS SUMMARY | 2024-08-15 17:40 | XMS_ITS | Encounter Summary ---
Author Organization [facility] Address [address] [place] [address] Care Team Providers Care Sewer Bricklayer Name Role Phone Venu Norton MD Primary Care Provider Murtaza Rachel Unavailable Unavailable Encounter Details Date Type Department Care Team (Late st Contact Info) Description 07/01/2020 Intake Admitting [address] [address] Social History Tobacco Use Types Packs/Day Years [...] on filedocumented in this encounter Care Teams Sewer Bricklayer Relationship Specialty Start Date End Date Venu Norton MD [address] [place] [address] PCP - General Pediatrics 08/24/17 Murtaza Rachel House Mover 07/03/20 documented as of this encounter
--- OUTSIDE RECORDS SUMMARY | 2024-08-15 17:40 | XMS_ITS | Encounter Summary ---
Author Organization [facility] Address [address] [place] [address] Care Team Providers Care Feedlot Manager Name Role Phone Venu Norton MD Primary Care Provider +1- [phone] Encounter Details Date Type Department Care Team (Late st Contact Info) Description 05/21/2004 [facility] VISIT [facility] FLU W [...] manifestations documented in this encounter Care Teams Feedlot Manager Relationship Specialty Start Date End Date Venu Norton MD [facility] [address] [address] PCP - General Pediatric Medicine 12/29/17 documented as of this encounter
--- OUTSIDE RECORDS SUMMARY | 2024-08-15 17:40 | XMS_ITS | Data Portability ---
Author Organization [place] [facility] Address [address] [facility] [address] [place] [address] Assessment No assessment recorded. Plan of Treatment Reminders Order Date Submit Date Provider Last Modified By Organization Details Last Modified Time Details Appointments None recorded. Lab urinalysis, dipstick 2024 025 [facility], [address], [place], [address], 5 16:34:37 urinary tract pathogens panel, MARGOT+probe, urine - add on labs: Chlamydia Trachomatis , Cytomegalov irus, Herpes Simplex Virus (HSV) types 1/2, EVELYN Virus, BK Virus, MRSA Phenotypes, Mycobacteri um Tuberculosi s, Nesseria Gonorrhea, Trichomonas Vaginalis [email or web address] [facility], [address], [place], [address], 5 08:27:33 Referral None recorded. Procedures None recorded. Surgeries None recorded. Imaging None recorded. Medication Orders None recorded. Patient TargetsNo targets recorded. Patient Instructions Encounter Date Encounter Id Patient Instructions Last Modified By Organization Details Last Modified Time 05/20/2024 [id number] Addison presents for dysuria - UA: normal - PVR: 28cc Ordered guidance, will contact w results Has had several courses of abx with only minimal improvement Increase water Epsom salt soaks Avoid caffeine and alcohol Pyridium as needed (will turn urine orange, watch for staining) tadalafil 5mg/day if severe symptoms [email or web address] Not available 05/20/2024 16:51:30 Reason for Referral None Reported. Results Created Date Observation Date Name Description Value Unit Range Abnormal Flag Note LastModifiedBy Organization Detail LastModifiedTime 05/20/19 25 05/20/2024 UA WITHO UT MICRO PLYMO UTH color-status YELLOW yellow Not Available [facility] [address] [facility] [address], [place], [address], 05/20/2024 16:34:37 05/20/19 25 05/20/2024 UA WITHO UT MICRO PLYMO UTH clarity-stat us CLEAR clear Not Available [facility] [address] [facility] [address], [place], [address], 05/20/2024 16:34:37 05/20/19 25 05/20/2024 UA WITHO UT MICRO PLYMO UTH glucose-stat us NEGATI VE mg/dL negati ve Not Available [facility] [address] [facility] [address], [place], [address], 05/20/2024 16:34:37 05/20/19 25 05/20/2024 UA WITHO UT MICRO PLYMO UTH bilirubin-ur ine NEGATI VE negati ve Not Available [facility] [address] [facility] [address], [place], [address], 05/20/2024 16:34:37 05/20/19 25 05/20/2024 UA WITHO UT MICRO PLYMO UTH ketones-stat us NEGATI VE mg/dL negati ve Not Available [facility] [address] [place] [address] [address], [place], [address], 05/20/2024 16:34:37 05/20/19 25 05/20/2024 UA WITHO UT MICRO PLYMO UTH SG-status 1.020 1.00-1 .03 Not Available [facility] [address] [place] [address] 200, [place], [address], 05/20/2024 16:34:37 05/20/19 25 05/20/2024 UA WITHO UT MICRO PLYMO UTH pH-status 7.0 5.00-8 .00 Not Available [facility] [address] [place] [address] 200, [place], [address], 05/20/2024 16:34:37 05/20/19 25 05/20/2024 UA WITHO UT MICRO PLYMO UTH protein-stat us NEGATI VE mg/dL negati ve Not Available [facility] [address] [place] [address] 200, [place], [address], 05/20/2024 16:34:37 05/20/19 25 05/20/2024 UA WITHO UT MICRO PLYMO UTH urobilinogen -status 0.2 E.U./D L E.U./ dL 0.2 E.U./d L Not Available [facility] [address] [place] [address] 200, [place], [address], 05/20/2024 16:34:37 05/20/19 25 05/20/2024 UA WITHO UT MICRO PLYMO UTH nitrites-sta tus NEGATI VE negati ve Not Available [facility] [address] [place] [address], [place], [address], 05/20/2024 16:34:37 05/20/19 25 05/20/2024 UA WITHO UT MICRO PLYMO UTH blood-urine NEGATI VE negati ve Not Available [facility] [address] [place] [address] 200, [place], [address], 05/20/2024 16:34:37 05/20/19 25 05/20/2024 UA WITHO UT MICRO PLYMO UTH leuko-status NEGATI VE negati ve Not Available [facility] [address] [place] [address] 200, [place], [address], 05/20/2024 16:34:37 05/20/19 25 05/20/2024 UA WITHO UT MICRO PLYMO UTH specimen type VOIDED Not Available [facility] [address] [facility] [address], [place], [address], 05/20/2024 16:34:37 05/20/19 25 05/20/2024 UA WITHO UT MICRO PLYMO UTH performed by GERTRUDIS Roman Not Available [facility] [address] [facility] [address], [place], [address], 05/20/2024 16:34:37 05/20/19 25 05/20/2024 UA WITHO [...] make recom menda tions based on the arnulfo t. Nina zimmerman allow up to one week for provi jake revie w. Not Available [facility] [address] [facility] [address], [place], [address], 05/20/2024 16:34:37 05/20/19 25 05/20/2024 GX - RECUR RENT PERSI STENT COMPL ICATE D UTI test result: SEE NOTES Juan nce 7.0, Clean Catch Urine , UTI Surgi michael, Test Resul t: PATHO GENIC DNA NOT DETEC JOSE LUIS#* F Not Available [facility] [address] [place], [address], 05/23/2024 08:57:38 05/20/19 25 05/20/2024 GX - OTHER UROPA THOGE NS test result: SEE NOTES Juan nce 7.0, Clean Catch Urine , UTI Surgi michael, Test Resul t: PATHO GENIC DNA NOT DETEC JOSE LUIS#* F Not Available [facility] [address] [place], [address], 05/23/2024 08:57:45 Result Notes None recorded. Problems Name Problem SNOMED Code Status Onset Date Resolution Date Notes Provider Name and Address Organization Details Recorded Time Dysuria 43708251 Active 025 Emily Hyde [facility] 5 14:54:55 Increased frequency of urination 903531058 Active 025 LEIDY DONOVAN, PAC [address] [facility],[address] [place] [address], [address], [facility] 5 11:13:32 Urethritis 61876008 Active 025 LEIDY DONOVAN PAC [address] [facility],[address] [place] [address], [address], [facility] 5 15:43:39 Flank pain 215273862 Active 025 LEIDY DONOVAN, PAC [address] [facility],[address] [place] [address], [address], [facility] 5 11:11:23 Problem Notes None recorded. Procedures Surgical History Date Name Laterality Status Provider Name and Address Organization Details Recorded Time Past Data Reviewed cancelled Ba Ruiz MD [address] [facility],[address] [place] [address], [address], [facility] 06/10/2024 17:34:20 5 Bladder Scan cancelled Ba Ruiz MD [address] [facility],[address], [place], [address], [facility] 06/10/2024 17:34:20 5 Past Data Reviewed completed SHAYNA BLEDSOE [address] [facility] [address], [place], [address], [facility] 05/20/2024 16:32:19 5 Bladder Scan completed Emily Hyde [facility] 05/20/2024 16:29:47 Imaging Results None recorded. Procedure [...] 27 mg tablet,exte nded release 24 hr TAKE 1 TABLET BY MOUTH EVERY MORNING active Not Available Not Available No t Available tadalafil 5 mg tablet Take 1 tablet every day by oral route. 2024 active Not Available Not Available Not Avai lable Vitals Date Recorded Body weight Body height Body mass index (BMI) Provider Name and Address Organization Details Last Updated DateTime 05/20/2024 24217.02980 41888 g 185.42 cm 25.3 kg/m2 Not Available Health Note 05/20/2024 16:20:24 Social History Question Answer Notes LastModified by Classroom IQ Details LastModified Time Tobacco Smoking Status Never Smoker Not Available Health Note 05/19/2024 21:35:32 Do You Have An Advance Directive? Yes [email or web address] Information n ot available 05/19/2024 What Is Your Level Of Caffeine Consumption? None [email or web address] Information not available 05/19/2024 How Much Tobacco Do You Chew? None [email or web address] Information not available 05/19/2024 Do You Have A Medical Power Of Packaging Tech? Yes [email or web address] Information not available 05/19/2024 What Was The Date Of Your Most Recent Tobacco Screening? 05/20/2024 [email or web address] Information not available 05/19/2024 What Is Your Relationship Status? Single [email or web address] Information not available 05/19/2024 Are You Sexually Active? No [email or web address] Information not available 05/19/2024 Has Tobacco Cessation Counseling Been Provided? Yes [email or web address] Information not available 05/19/2024 On What Date Was Tobacco Cessation Counseling Provided? 05/20/2024 [email or web address] Information not available 05/20/2024 How Many Days In The Past Year Have You Consumed 5 Or More Drinks? 20 [email or web address] Information not available 05/19/2024 Sex: Unknown Functional Status Question Answer Note LastModified by Classroom IQ Details LastModified Time Do you use any illicit or recreational drugs? No [email or web address] Information not available 05/19/2024 Do you or have you ever used any other forms of tobacco or nicotine? No Information not available 05/19/2024 What is your level of alcohol consumption? Occasional [email or web address] Information not available 05/19/2024 Do you or have you ever used smokeless tobacco? Never used smokeless tobacco [email or web address] Information not available 05/19/2024 Do you or have you ever used e-cigarettes or vape? Never used electronic cigarettes [email or web address] Information not available 05/19/2024 Mental Status None recorded. Family History Relationship [...] GERD/Acid Reflux N Sexually Transmitted Infection N Cancer N High Cholesterol N Diabetes N Bleeding Disorder N Heart Disease N Immunizations Vaccine Type [...] SNOMED-CT Code Diagnosis ICD10 Code Diagnosis Note [id number] SHAYNA BLEDSOE [facility] [address] [facility],[address] [address] 05/20/2024 16:18:47 05/20/2024 16:55:12 Dysuria 75442737 R30.0 Increased frequency of urination 003635539 R35.0 Health Concerns Section Related Observation LastModified by Organization Detai ls LastModified Time None Recorded Concern Status LastModified by Organization Details LastModified Time None Recorded Advance Directives Directive Y: Payers Insurance Date Sequence Insurance Name Policy Number Policy Snowden Covered Member ID Snowden Member ID Guarantor Name 06/09/2024 1 [place] [facility] ([place]) [id number] Kevin Chairez [id number] Addison Chairez Notes Date Note Type [...] life:SomeProgression:about the same overall SHAYNA BLEDSOE [address] [facility],[address], [place], [address], [place] [facility] 05/20/2024 16:51:44
--- OUTSIDE RECORDS SUMMARY | 2024-08-15 17:40 | XMS_ITS | Clinical Summary ---
Author Organization [facility] Address [address] [place] [address] Care Team Providers Care Director Of Managed Services Name Role Phone Unavailable Primary Care Provider Unavailabl e Source Comments NOTE: The information displayed by Care Everywhere is extracted from the complete medical record and may not identify all current or past patient conditions.[facility] Allergies No known active allergies [...] (1-time) 2018 Hep C Screening (1-time) 2021 Vaccine: COVID-19 ( season) 2023 Vaccine: [id number] (7 - T d or Tdap) 02/24/2024 02/23/2014, 03/07/2008, 07/11/2004, Additional history exists FLU VACCINE (Season Ended) 11/29/202403/05, 12/20/2014, 02/23/2014, Additional history exists Vaccine: HPV Completed 03/05/2016, 12/20/2014 Insurance [facility] Advance Directives For more information, please contact: [phone] Documents on File Type Date Recorded Patient Outside Salesman Expl anation Advance Directive and Living Will Durable Power of Lip Cutter And Scorer 01/04/2013 11:56 AM Advance Directive and Living Will 01/04/2013 11:56 AM
--- OUTSIDE RECORDS SUMMARY | 2024-08-15 17:40 | XMS_ITS | Encounter Summary ---
Author Organization [facility] Address [address] [place] [address] Care Team Providers Care Exhibit Preparator Name Role Phone Venu Norton MD Primary Care Provider [phone] Encounter Details Date Type Department Care Team (Late st Contact Info) Description 05/01/2004 [facility] VISIT [facility] Jamie Pruitt MD Address Alert - Do Not Mail Dept[facility] [address] [place], [place] FEVER Social History Tobacco Use Types [...] regulation documented in this encounter Care Teams Exhibit Preparator Relationship Specialty Start Date End Date Venu Norton MD [facility] [address] [place] [address] PCP - General Pediatric Medicine 12/29/17 documented as of this encounter
--- OUTSIDE RECORDS SUMMARY | 2024-08-15 17:40 | XMS_ITS | Continuity of Care Document ---
Author Organization [facility] Address [address] [facility] [address] [place] [address] Phone Care Team Providers Care Mottler Machine Feeder Name Role Phone Jassi Loya MD Unavailable [...] as needed - Active Procedures Procedure Date OFFICE/OUTPATIENT VISIT, EST POSTOP FOLLOW-UP VISIT Hip Arthr0 W/Debridement HIP [...] Provider Providers Copied on Encounter [facility], [address] [place] [address], [place], [place], [id number], tel:[phone] [facility] [address] No Information 5 Shalini Keene. [address] [place] [address], [place], [id number] , [place]. tel: [phone] OFFICE/OUTPA TIENT VISIT, EST [facility], [address] [place] [address] [address], [place], [place], [id number], [place] tel:[phone] [facility] [address] Tear of left acetabular labrum, initial encounterChronic left hip pain 5 Shalini Keene. [address] [place] [address], [place], [place], [id number] , [place]. tel: [phone] Referring Provider: Jassi Loya, [address] [place] [address] [address], [place], [address] . tel:[phone] [facility], [address] [place] [address] [address], [place], [place], [id number], [place] tel:[phone] [facility] [address] Tear of left acetabular labrum, initial encounterChronic left hip pain 4 Shalini Keene. [address] [place] [address], [place], [place], [id number] , [place]. tel: [phone] Referring Provider: Jassi Loya, [address] [place] [address] [address], [place], [address] . tel:[phone] [facility], [address] [facility] [address], [place], [place], [id number], [place] tel:[phone] [facility] No Information 4 Bebe Kirkland. [address], [address], [place], [place], [id number] , [place]. tel: [phone] Referring Provider: Jassi Loya, [address], [place], [address] . tel:[phone] [facility], [address] [facility] [address], [place], [place], [id number], [place] tel:[phone] [facility] No Information 4 Shalini Keene. [address], [address], [place], [place], [id number] , [place]. tel: [phone] Referring Provider: Jassi Loya, [address] [place] [address] [address], [place], [address] . tel:[phone] [facility], [address] [facility] [address], [place], [place], [id number], [place] tel:[phone] [facility] [address] No Information 4 Shalini Keene. [address], [address], [place], [place], [id number] , [place]. tel: [phone] Referring Provider: Jassi Loya, [address] [place] [address] [address], [place], [address] . tel:[phone] OFFICE/OUTPA TIENT VISIT, EST [facility], [address] [facility] [address], [place], [place], [id number], [place] tel:[phone] [facility] [address] Tear of left acetabular labrum, initial encounter 4 Shalini Keene. [address] [place] [address], [address], [place], [place], [id number] , [place]. tel: [phone] Referring Provider: Jassi Loya, [address] [place] [address] [address], [place], [address] . tel:[phone] [facility], [address] [place] [address] [address], [place], [place], [id number], [place] tel:[phone] [facility] [address] Chronic left hip painTear of left acetabular labrum, initial encounter 4 Shalini Bajwa. [address], [facility] 700, [place], [place], [address] , [place]. tel: [phone] Referring Provider: Aydee Loya, [address] [place] [address] [address], [place], [address] . tel:[phone] OFFICE/OUTPA TIENT VISIT, EST [facility], [address] [place], [place] [address] [address], [place], [place], [id number], [place] tel:[phone] [facility] [address] Tear of left acetabular labrum, initial encounter 4 Shalini Keene. [address] [place] [address], [facility] 700, [place], [place], [id number] , [place]. tel: [phone] Referring Provider: Jassi Loya, [address] [place] [address] [address], [place], [address] . tel:[phone] OFFICE/OUTPA TIENT VISIT, EST [facility], [address] [facility] [address], [place], [place], [id number], [place] tel:[phone] [facility] [address] Tear of left acetabular labrum, initial encounter 4 Shalini Keene. [address] [place] [address], [facility] 700, [place], [place], [id number] , [place]. tel: [phone] Referring Provider: Jassi Loya, [address] [place] [address] [address], [place], [address] . tel:[phone] [facility], [address] [place] [address] [address], [place], [place], [id number], [place] tel:[phone] [facility] [place] No Information 4 Shalini Keene. [address] [place] [address], [facility] 700, [place], [place], [id number] , [place]. tel: [phone] Referring Provider: Jassi Loya, [address] [place] [address] [address], [place], [address] . tel:[phone] OFFICE/OUTPA TIENT VISIT, NEW [facility], [address] [place] [address] [address], [place], [place], [id number], [place] tel:[phone] [facility] Tear of left acetabular labrum, initial encounter 4 Shalini Keene. [address] [place] [address], [address], [place], [place], [id number] , [place]. tel: [phone] Referring Provider: Jassi Loya, [address], [place], [address] . tel:[phone] Family History Family Member Type Diagnosis Age At Onset No Information Payers Payer name Insurance type Covered libertarian ID Authoriza tiofelia(s) [facility] [id number] Social History Type Description Quantity Date Captured Comments Sex Male Smoking Status No Information Chief Complaint And Reason For Visit No Information Reason For Referral Reason For Referral No Information Plan Of Treatment Date Type Action Status Appointment Addison Chairez *needs Li nk BOOKED Appointment Addison Chairez BOOKED Future Order: Radiology Order NE EDLE LOCALIZATION BY SEKOU, Left ([id number]), Sent on: Sent Future Order: Radiology Order MR I ARTHROGRAM LWR EXTR W/DYE, Left ([id number]), Sent on: Sent History Of Present Illness Encounter Date Complaint History Of Prese nt Illness No Information Functional Status Date Functional Assessmen t No Information Instructions Date Instruction Additional Infor mation No Information Assessments Type Assessment Date No Information Patient Care Teams Name Effective Dates (start - stop) Status Members No Information
== END 2024-08-15 01:00 | disposition home or self-care (01) ==
LOC: ED 00:55
PROVIDERS: Emergency Provider Family Medicine
DX: S01.01XA Laceration without foreign body of scalp, initial encounter (principal); X58.XXXA Exposure to other specified factors, initial encounter; Z23 Encounter for immunization
CPT/HCPCS: 12001; 90471; 90714; 99283